=== PATIENT | male | born 1995 | race Caucasian/White ===

== ENCOUNTER 2024-05-29 08:58 | Observation (INO) | payer MEDICAID, OTHER ==
--- NOTE | 2024-05-29 09:05 | ERPHSYRPT ---
- History of Present Illness Time Seen by Provider: 05/29/24 09:04 Source: patient Exam Limitations: no limitations Physician History: This is a 29-year-old thin white male patient who has a history of Crohn's disease who arrives by private vehicle secondary to sudden onset of chest pain while watching TV at home. Patient was not exerting himself. Patient states his entire chest is achy. The pain is constant. It does not radiate. Patient is on Geodon and Effexor. Patient denies cough. Patient denies fever. Patient denies earaches. Patient has no abdominal pain. He denies nausea vomiting symptoms. He chronically has intermittent diarrhea symptoms. Patient states that he has had shaking chills. Timing/Duration: today Severity: mild (To moderate) Associated Symptoms: chest pain Allergies/Adverse Reactions: No Known Drug Allergies Allergy (Verified 05/29/24 09:04) Home Medications: Venlafaxine HCl [Venlafaxine HCl ER] 150 mg PO DAILY 05/29/24 [History] ziprasidone HCL [Ziprasidone HCl] 80 mg PO BID 05/29/24 [History] Hx Tetanus, Diphtheria Vaccination/Date Given: Yes Hx Influenza Vaccination/Date Given: Yes (2012) Hx Pneumococcal Vaccination/Date Given: No Travel Risk - International Travel Have you traveled outside of the country in past 3 weeks: No - Emerging Infectious Disease Are you exhibiting symptoms associated with any current EIDs: No - Review of Systems Constitutional: Chills Eyes: No Symptoms Ears, Nose, & Throat: No Symptoms Respiratory: No Symptoms Cardiac: Chest Pain Abdominal/Gastrointestinal: No Symptoms Genitourinary Symptoms: No Symptoms Musculoskeletal: No Symptoms Skin: No Symptoms Neurological: No Symptoms Psychological: No Symptoms Endocrine: No Symptoms Hematologic/Lymphatic: No Symptoms Immunological/Allergic: No Symptoms All Other Systems: Reviewed and Negative - Past Medical History Pertinent Past Medical History: Yes Neurological History: No Pertinent History ENT History: No Pertinent History Cardiac History: No Pertinent History Respiratory History: No Pertinent History Endocrine Medical History: No Pertinent History Musculoskeletal History: No Pertinent History GI Medical History: Crohns Disease History: No Pertinent History Psycho-Social History: No Pertinent History Male Reproductive Disorders: No Pertinent History - Past Surgical History Past Surgical History: Yes Neuro Surgical History: No Pertinent History Cardiac: No Pertinent History Respiratory: No Pertinent History Gastrointestinal: No Pertinent History Genitourinary: No Pertinent History Musculoskeletal: Other Male Surgical History: No Pertinent History Other Surgical History: bilateral fourth and fifth finger separation - Social History Smoking Status: Never smoker Exposure to second hand smoke: Yes Drug Use: none - Nursing Vital Signs Nursing Vital Signs: Initial Vital Signs Temperature 98.1 F 05/29/24 09:05 Pulse Rate 112 H 05/29/24 09:05 Blood Pressure 142/97 05/29/24 09:05 O2 Sat by Pulse Oximetry 100 05/29/24 09:05 Pain Scale Pain Intensity 4 - Physical Exam General Appearance: no apparent distress, alert, anxiety, thin Eye Exam: PERRL/EOMI, eyes nml inspection Ears, Nose, Throat Exam: normal ENT inspection, moist mucous membranes Neck Exam: normal inspection, non-tender, supple, full range of motion Respiratory Exam: normal breath sounds, chest tenderness, lungs clear, airway intact, No respiratory distress Cardiovascular Exam: tachycardia Gastrointestinal/Abdomen Exam: soft, normal bowel sounds, No tenderness Rectal Exam: not done Back Exam: normal inspection, normal range of motion, No CVA tenderness, No v ertebral tenderness Extremity Exam: normal inspection, normal range of motion, pelvis stable Neurologic Exam: alert, oriented x 3, cooperative, manager athletics II-XII nml as tested, nml cerebellar function, nml station & gait, sensation nml Skin Exam: normal color, warm, dry Lymphatic Exam: No adenopathy SpO2 Interpretation: normal O2 Delivery: Room Air - Course Nursing assessment & vital signs reviewed: Yes EKG Interpreted by Me: RATE (119), A-fib, NORMAL AXIS, NORMAL INTERVALS, NORMAL QRS, Other (No acute ischemic changes on today's twelve-lead EKG the QTc is 440. We repeated the twelve-lead EKG approximately 3 to 5 minutes after the first 1 and it is essentially the same findings.) Ordered Tests: Active Orders 24 hr Category Date Time Status Roll Panner STAT Care 05/29/24 09:14 Active EKG-ER Only STAT Care 05/29/24 09:14 Active IV Insertion STAT Care 05/29/24 09:14 Active Pulse Oximetry (ED) STAT Care 05/29/24 09:14 Active CHEST WITH CONTRAST [CT] Stat Exams 05/29/24 10:09 Completed BLOOD CULTURE Stat Lab 05/29/24 09:41 Received CBC W DIFF Stat Lab 05/29/24 09:36 Completed CMP Stat Lab 05/29/24 09:36 Completed D-DIMER QUANTITATIVE Stat Lab 05/29/24 09:36 Completed Lactic Acid Stat Lab 05/29/24 09:25 Completed MAG [MAGNESIUM] Stat Lab 05/29/24 09:36 Completed MONO SCREEN Stat Lab 05/29/24 09:36 Completed TROPONIN Q4H Lab 05/29/24 09:36 Completed TROPONIN Q4H Lab 05/29/24 13:15 Ordered TROPONIN Q4H Lab 05/29/24 17:15 Ordered UA W/RFX UR CULTURE Stat Lab 05/29/24 11:11 Completed Urine Triage Profile Stat Lab 05/29/24 11:13 Completed Medication Summary Generic Name Dose Route Start Last Admin Trade Name Freq PRN Reason Stop Dose Admin Sodium Chloride 1,000 mls @ 100 mls/hr 05/29/24 09:15 05/29/24 09:25 Sodium Chloride 0.9% 1000 Ml IV 06/28/24 09:14 100 mls/hr .Q10H ENE Administration Discontinued Medications Generic Name Dose Route Start Last Admin Trade Name Freq PRN Reason Stop Dose Admin Aspirin 324 mg 05/29/24 09:14 05/29/24 09:25 Aspirin 81 Mg Tab.Chew PO 05/29/24 09:15 324 mg STAT ONE Administration Aspirin Confirm 05/29/24 09:24 Aspirin 81 Mg Tab.Chew Administered 05/29/24 09:25 Dose 324 mg .ROUTE .STK-MED ONE Diltiazem HCl 15 mg 05/29/24 11:18 05/29/24 11:22 Diltiazem Hcl Iv 5 Mg/Ml Vial IV 05/29/24 11:19 15 mg STAT ONE Administration Diltiazem HCl Confirm 05/29/24 11:21 Diltiazem Hcl Iv 5 Mg/Ml Vial Administered 05/29/24 11:22 Dose 50 mg IV .STK-MED ONE Ondansetron HCl 4 mg 05/29/24 09:14 05/29/24 09:25 Ondansetron Hcl 4 Mg/2 Ml Vial IV 05/29/24 09:15 4 mg STAT ONE Administration Ondansetron HCl Confirm 05/29/24 09:24 Ondansetron Hcl 4 Mg/2 Ml Vial Administered 05/29/24 09:25 Dose 4 mg .ROUTE .STK-MED ONE Potassium Chloride 20 meq 05/29/24 10:09 05/29/24 10:12 Potassium Chloride Tab 10 Meq Tab PO 05/29/24 10:10 20 meq STAT ONE Administration Potassium Chloride Confirm 05/29/24 10:12 Potassium Chloride Tab 10 Meq Tab Administered 05/29/24 10:13 Dose 20 meq .ROUTE .STK-MED ONE Lab/Rad Data: Laboratory Result Diagrams 05/29/24 09:36 05/29/24 09:36 Laboratory Results 05/29/24 05/29/24 05/29/24 Range/Units 11:13 11:11 09:36 WBC (4.23-9.07) x10^3/uL RBC (4.63-6.08) x10^6/uL Hgb (13.7-17.5) g/dL Hct (40.1-51.0) % MCV (79.0-92.2) fL MCH (25.7-32.2) pg MCHC (32.3-36.5) g/dL RDW (11.6-14.4) % Plt Count (163-337) x10^3/uL MPV (9.4-12.4) fL Gran % (34.0-67.9) % Immature Gran % (Auto) (0.001-0.429) % Nucleat RBC Rel Count (0.00-0.2) % Eos # (Auto) (0.04-0.54) x10^3/uL Immature Gran # (Auto) (0.001-0.031) x10^3u/L Absolute Lymphs (auto) (1.32-3.57) x10^3/uL Absolute Monos (auto) (0.30-0.82) x10^3/uL Absolute Nucleated RBC (0.00-0.012) x10^3u/L Lymphocytes % (21.8-53.1) % Monocytes % (5.3-12.2) % Eosinophils % (0.8-7.0) % Basophils % (0.2-1.2) % Absolute Granulocytes (1.78-5.38) x10^3/uL Basophils # (0.01-0.08) x10^3/uL D-Dimer (0.0-0.50) mg/L Sodium (135-145) mmol/L Potassium (3.5-5.1) mmol/L Chloride (98-107) mmol/L Carbon Dioxide (22-30) mmol/L Anion Gap (5-15) MEQ/L BUN (9-20) mg/dL Creatinine (0.66-1.25) mg/dL Estimated GFR ML/MIN Glucose (74-106) mg/dL Lactic Acid (0.4-2.0) Calcium (8.4-10.2) mg/dL Magnesium (1.6-2.3) mg/dL Total Bilirubin (0.2-1.3) mg/dL AST (17-59) U/L ALT (0-50) U/L Alkaline Phosphatase (38-126) U/L Troponin I (0.000-0.033) ng/mL Serum Total Protein (6.3-8.2) g/dL Albumin (3.5-5.0) g/dL Urine Color Yellow (Yellow) Urine Appearance Clear (Clear) Urine pH 7.0 (4.6-8.0) Ur Specific [place] 1.020 (1.005-1.030) Urine Protein Negative (Negative) Urine Glucose (UA) Negative (Negative) mg/dL Urine Ketones Negative (Negative) Urine Blood Negative (Negative) Urine Nitrite Negative (Negative) Urine Bilirubin Negative (Negative) Urine Urobilinogen 0.2 (0.2) mg/dL Ur Leukocyte Esterase Negative (Negative) U Hyaline Cast (Auto) NONE SEEN (0-2) /LPF Urine Microscopic RBC 0-2 (0-5) /HPF Urine Microscopic WBC 0-2 (0-5) /HPF Ur Epithelial Cells None Seen (None Seen) /HPF Urine Bacteria None Seen (None Seen) /HPF Urine Culture Reflexed NO (NO) Urine Opiates Level NEGATIVE (NEGATIVE) Ur Methadone NEGATIVE (NEGATIVE) Urine Barbiturates NEGATIVE (NEGATIVE) Ur Phencyclidine (PCP) NEGATIVE (NEGATIVE) Urine Amphetamine NEGATIVE (NEGATIVE) U Benzodiazepine Level NEGATIVE (NEGATIVE) Urine Cocaine NEGATIVE (NEGATIVE) Urine Marijuana (THC) NEGATIVE (NEGATIVE) Monoscreen (NEGATIVE) Influenza Type A Ag NEGATIVE (NEGATIVE) Influenza Type B Ag NEGATIVE (NEGATIVE) RSV (PCR) NEGATIVE (NEGATIVE) SARS-CoV-2 (PCR) NEGATIVE (NEGATIVE) 05/29/24 05/29/24 05/29/24 Range/Units 09:36 09:36 09:36 WBC (4.23-9.07) x10^3/uL RBC (4.63-6.08) x10^6/uL Hgb (13.7-17.5) g/dL Hct (40.1-51.0) % MCV (79.0-92.2) fL MCH (25.7-32.2) pg MCHC (32.3-36.5) g/dL RDW (11.6-14.4) % Plt Count (163-337) x10^3/uL MPV (9.4-12.4) fL Gran % (34.0-67.9) % Immature Gran % (Auto) (0.001-0.429) % Nucleat RBC Rel Count (0.00-0.2) % Eos # (Auto) (0.04-0.54) x10^3/uL Immature Gran # (Auto) (0.001-0.031) x10^3u/L Absolute Lymphs (auto) (1.32-3.57) x10^3/uL Absolute Monos (auto) (0.30-0.82) x10^3/uL Absolute Nucleated RBC (0.00-0.012) x10^3u/L Lymphocytes % (21.8-53.1) % Monocytes % (5.3-12.2) % Eosinophils % (0.8-7.0) % Basophils % (0.2-1.2) % Absolute Granulocytes (1.78-5.38) x10^3/uL Basophils # (0.01-0.08) x10^3/uL D-Dimer 1.63 H* (0.0-0.50) mg/L Sodium (135-145) mmol/L Potassium (3.5-5.1) mmol/L Chloride (98-107) mmol/L Carbon Dioxide (22-30) mmol/L Anion Gap (5-15) MEQ/L BUN (9-20) mg/dL Creatinine (0.66-1.25) mg/dL Estimated GFR ML/MIN Glucose (74-106) mg/dL Lactic Acid (0.4-2.0) Calcium (8.4-10.2) mg/dL Magnesium 1.8 (1.6-2.3) mg/dL Total Bilirubin (0.2-1.3) mg/dL AST (17-59) U/L ALT (0-50) U/L Alkaline Phosphatase (38-126) U/L Troponin I < 0.012 (0.000-0.033) ng/mL Serum Total Protein (6.3-8.2) g/dL Albumin (3.5-5.0) g/dL Urine Color (Yellow) Urine Appearance (Clear) Urine pH (4.6-8.0) Ur Specific [place] (1.005-1.030) Urine Protein (Negative) Urine Glucose (UA) (Negative) mg/dL Urine Ketones (Negative) Urine Blood (Negative) Urine Nitrite (Negative) Urine Bilirubin (Negative) Urine Urobilinogen (0.2) mg/dL Ur Leukocyte Esterase (Negative) U Hyaline Cast (Auto) (0-2) /LPF Urine Microscopic RBC (0-5) /HPF Urine Microscopic WBC (0-5) /HPF Ur Epithelial Cells (None Seen) /HPF Urine Bacteria (None Seen) /HPF Urine Culture Reflexed (NO) Urine Opiates Level (NEGATIVE) Ur Methadone (NEGATIVE) Urine Barbiturates (NEGATIVE) Ur Phencyclidine (PCP) (NEGATIVE) Urine Amphetamine (NEGATIVE) U Benzodiazepine Level (NEGATIVE) Urine Cocaine (NEGATIVE) Urine Marijuana (THC) (NEGATIVE) Monoscreen NEGATIVE (NEGATIVE) Influenza Type A Ag (NEGATIVE) Influenza Type B Ag (NEGATIVE) RSV (PCR) (NEGATIVE) SARS-CoV-2 (PCR) (NEGATIVE) 05/29/24 05/29/24 05/29/24 Range/Units 09:36 09:36 09:25 WBC 7.3 (4.23-9.07) x10^3/uL RBC 4.88 (4.63-6.08) x10^6/uL Hgb 14.9 (13.7-17.5) g/dL Hct 41.9 (40.1-51.0) % MCV 85.9 (79.0-92.2) fL MCH 30.5 (25.7-32.2) pg MCHC 35.6 (32.3-36.5) g/dL RDW 12.4 (11.6-14.4) % Plt Count 306 (163-337) x10^3/uL MPV 10.4 (9.4-12.4) fL Gran % 55.3 (34.0-67.9) % Immature Gran % (Auto) 0.3 (0.001-0.429) % Nucleat RBC Rel Count 0.0 (0.00-0.2) % Eos # (Auto) 0.08 (0.04-0.54) x10^3/uL Immature Gran # (Auto) 0.02 (0.001-0.031) x10^3u/L Absolute Lymphs (auto) 2.48 (1.32-3.57) x10^3/uL Absolute Monos (auto) 0.66 (0.30-0.82) x10^3/uL Absolute Nucleated RBC 0.00 (0.00-0.012) x10^3u/L Lymphocytes % 33.8 (21.8-53.1) % Monocytes % 9.0 (5.3-12.2) % Eosinophils % 1.1 (0.8-7.0) % Basophils % 0.5 (0.2-1.2) % Absolute Granulocytes 4.06 (1.78-5.38) x10^3/uL Basophils # 0.04 (0.01-0.08) x10^3/uL D-Dimer (0.0-0.50) mg/L Sodium 140 (135-145) mmol/L Potassium 3.3 L (3.5-5.1) mmol/L Chloride 100 (98-107) mmol/L Carbon Dioxide 29 (22-30) mmol/L Anion Gap 14.0 (5-15) MEQ/L BUN 8 L (9-20) mg/dL Creatinine 0.75 (0.66-1.25) mg/dL Estimated GFR 126.9 ML/MIN Glucose 133 H (74-106) mg/dL Lactic Acid 1.2 (0.4-2.0) Calcium 9.2 (8.4-10.2) mg/dL Magnesium (1.6-2.3) mg/dL Total Bilirubin 0.50 (0.2-1.3) mg/dL AST 22 (17-59) U/L ALT 15 (0-50) U/L Alkaline Phosphatase 126 (38-126) U/L Troponin I (0.000-0.033) ng/mL Serum Total Protein 8.5 H (6.3-8.2) g/dL Albumin 4.6 (3.5-5.0) g/dL Urine Color (Yellow) Urine Appearance (Clear) Urine pH (4.6-8.0) Ur Specific [place] (1.005-1.030) Urine Protein (Negative) Urine Glucose (UA) (Negative) mg/dL Urine Ketones (Negative) Urine Blood (Negative) Urine Nitrite (Negative) Urine Bilirubin (Negative) Urine Urobilinogen (0.2) mg/dL Ur Leukocyte Esterase (Negative) U Hyaline Cast (Auto) (0-2) /LPF Urine Microscopic RBC (0-5) /HPF Urine Microscopic WBC (0-5) /HPF Ur Epithelial Cells (None Seen) /HPF Urine Bacteria (None Seen) /HPF Urine Culture Reflexed (NO) Urine Opiates Level (NEGATIVE) Ur Methadone (NEGATIVE) Urine Barbiturates (NEGATIVE) Ur Phencyclidine (PCP) (NEGATIVE) Urine Amphetamine (NEGATIVE) U Benzodiazepine Level (NEGATIVE) Urine Cocaine (NEGATIVE) Urine Marijuana (THC) (NEGATIVE) Monoscreen (NEGATIVE) Influenza Type A Ag (NEGATIVE) Influenza Type B Ag (NEGATIVE) RSV (PCR) (NEGATIVE) SARS-CoV-2 (PCR) (NEGATIVE) - Progress Progress: improved, re-examined Progress Note: 05/29/24 09:52 My medical decision making and the assignment of moderate complexity of this patient's medical issue today is based on review of the patient's past medical history, review the patient's medication list, review of patient drug allergy list, history present illness and physical findings on examination. The workup in this patient includes placement of an intravenous line, infusion of normal saline solution, twelve-lead EKG, D-dimer, troponin level, blood culture, urinalysis, urine drug triage, CBC, CMP, magnesium level, viral swabs, monotest. We will hold the chest x-ray order until we receive the results of the D-dimer determine if the patient will receive a plain chest x-ray film or a CT scan of the chest with contrast. Also, not convinced the patient actually has atrial fibrillation but more of shivering with a rapid heart rate. We will control his heart rate and recheck the twelve-lead EKG. 05/29/24 11:25 I interpreted the patient's laboratory data results. The patient did have a significantly elevated D-dimer at 1.63. Therefore, we ordered a CT scan of the chest with contrast to evaluate for pulmonary embolus or other acute intrathoracic/pulmonary abnormality. No other acute findings present on the laboratory data results The patient's heart rate dropped from the 119 to low 120s to 110 bpm. However, suddenly it increased to the 140s beats per minute. He maintained his systolic blood pressure in the 1 30-1 40 range. I repeated a twelve-lead EKG and interpreted it myself. It shows atrial fibrillation with a heart rate of 139 bpm and a QTc of 454. No other acute findings present. Therefore, we will provide him with 15 mg of intravenous Cardizem to help control this atrial fibrillation with RVR. I did discuss with him and his family member that the plan will be to wait for the results of the CT scan of the chest with contrast and likely place him in observation in the hospital. The patient's mother provided additional history that the patient forgot to provide us. That is, that he recently had a significant strep pharyngitis requiring admission into the hospital. After the patient received 15 mg of Cardizem, repeat twelve-lead EKG reveals a heart rate of 107 bpm and a QTc of 398. There is no other acute findings present. His systolic blood pressure is maintaining in the 130 to 140 mmHg 05/29/24 11:34 CT scan of the chest with contrast was interpreted by the radiologist and I reviewed the impression. The impression states incidental thoracic Schmorl node and old granulomatous disease. No pulmonary embolus. 05/29/24 12:[address] Davis, our telehospitalist on at this time. I reviewed the patient history, presenting symptoms and complaint, physical findings and workup results with him. Patient will be placed in observation. The telehospitalist stated to put him on a monitored bed on the floor and they will manage his care there. Counseled pt/family regarding: lab results, diagnosis, rad results Medical Desision Making - Independent Historian Additional History obtained from: Mother - Diagnostic Testing Diagnostic test were ordered, analyzed, and reviewed by me: Yes Radiological Interpretation: Reviewed by me, Teleradiologist Report - Risk of complications The pt has a high risk of morbidity or mortality based on: Decision regarding hospitilization or escalation of hosp level of care - Departure Departure Disposition: Observation Clinical Impression: Atrial fibrillation with RVR, Nonspecific chest pain, Hypokalemia Condition: Fair Critical Care Time: Yes Critical Care Time(excluding separately billable procedures): Critical 30-74 mins (50 minutes) Referrals: [facility] [NON-STAFF PHY W/O PRIVILEGES] - Follow up/PCP as directed
[2024-05-29] MEDS ORDERED: BABY ASPIRIN 81 MG CHEW ONE (09:24)
[2024-05-29] MEDS ORDERED: Zofran 4 MG/2 ML VIAL ONE (09:24)
[2024-05-29] MEDS: Sodium Chloride 0.9% 1000 ML 1,000 ML IV SCH ×2 (09:25→15:05)
[2024-05-29] MEDS: BABY ASPIRIN 81 MG CHEW PO ONE (09:25)
[2024-05-29] MEDS: Zofran 4 MG/2 ML VIAL IV ONE (09:25)
[2024-05-29 09:46] LABS: Absolute Neutrophil Ct (ANC) 4.06 x10^3/uL (1.78-5.38); BASOPHIL % 0.5 % (0.2-1.2); Basophil (Absolute #) 0.04 x10^3/uL (0.01-0.08); Eosinophil % 1.1 % (0.8-7.0); Eosinophil (Absolute #) 0.08 x10^3/uL (0.04-0.54); Hematocrit 41.9 % (40.1-51.0); Hemoglobin 14.9 g/dL (13.7-17.5); IMMATURE GRAN # 0.02 x10^3u/L (0.001-0.031); IMMATURE GRAN % 0.3 % (0.001-0.429); Lymphocyte (Absolute #) 2.48 x10^3/uL (1.32-3.57); Lymphocytes % 33.8 % (21.8-53.1); Mean Cell Volume 85.9 fL (79.0-92.2); Mean Corpuscular Hemoglobin 30.5 pg (25.7-32.2); Mean Corpuscular Hgb Concent. 35.6 g/dL (32.3-36.5); Mean Platelet Volume 10.4 fL (9.4-12.4); Monocyte (Absolute #) 0.66 x10^3/uL (0.30-0.82); Neutrophil % 55.3 % (34.0-67.9); Platelet Count 306 x10^3/uL (163-337); Red Blood Count 4.88 x10^6/uL (4.63-6.08); Red Cell Distribution Width 12.4 % (11.6-14.4); White Blood Count 7.3 x10^3/uL (4.23-9.07)
[2024-05-29 10:00] LABS: ALBUMIN 4.6 g/dL (3.5-5.0); BILIRUBIN,TOTAL 0.5 mg/dL (0.2-1.3); Calcium 9.2 mg/dL (8.4-10.2); Creatinine 1 0.75 mg/dL (0.66-1.25); EST GLOMERULAR FILTRATION RATE 126.9 ML/MIN; Potassium 3.3 mmol/L (3.5-5.1); Total Protein 8.5 g/dL (6.3-8.2)
[2024-05-29 10:12] LABS: MAGNESIUM 1.8 mg/dL (1.6-2.3); TROPONIN < 0.012 ng/mL (0.000-0.033)
[2024-05-29] MEDS ORDERED: Klor Con ONE (10:12)
[2024-05-29] MEDS: Klor Con PO ONE (10:12)
[2024-05-29 10:34] LABS: INFLUENZA A NEGATIVE (NEGATIVE); INFLUENZA B NEGATIVE (NEGATIVE); RESPIRATORY SYNCTIAL VIRUS NEGATIVE (NEGATIVE); SARS-CoV-2 Xpert Express NEGATIVE (NEGATIVE)
[2024-05-29] MEDS ORDERED: Cardizem IV 50 MG/10 ML IV ONE (11:21)
[2024-05-29] MEDS: Cardizem IV 50 MG/10 ML IV ONE ×2 (11:22→13:19)
--- NOTE | 2024-05-29 11:31 | XRAY ---
Indication: Chest pain. Elevated d-dimer. Multiple contiguous axial images obtained through the chest using 80 cc Isovue 370 contrast and PE protocol. Comparison: None Good opacification pulmonary arteries to include the lobar and segmental branches. No pulmonary embolus. Heart not enlarged. Aorta is normal in course and caliber. Tiny left hilar calcified nodes. No pathologic mediastinal/hilar lymphadenopathy. Lungs inflated and clear with incidental tiny left lower lobe calcified granuloma. Bony thorax intact with incidental small multilevel thoracic Schmorl nodes. Limited upper abdomen demonstrates splenic/hepatic calcified granulomas. Impression: Incidental thoracic Schmorl nodes and old granulomatous disease. Remaining CT chest pulmonary embolus exam is normal.
[2024-05-29 11:32] LABS: Appearance Clear (Clear); Bacteria None Seen /HPF (None Seen); Bilirubin Negative (Negative); Blood Negative (Negative); Epithelial Cells None Seen /HPF (None Seen); Glucose, Urine Negative (Negative); Hyaline Casts NONE SEEN /LPF (0-2); Ketones Negative (Negative); Leukocyte Esterase Negative (Negative); Nitrite Negative (Negative); Protein,Urine Dip Negative (Negative); RBC 0-2 /HPF (0-5); Urobilinogen 0.2 mg/dL (0.2); WBC 0-2 /HPF (0-5)
[2024-05-29 11:47] LABS: Amphetamine,Urine NEGATIVE (NEGATIVE); Barbiturate,Urine NEGATIVE (NEGATIVE); Benzodiazepine,Urine NEGATIVE (NEGATIVE); Cocaine,Urine NEGATIVE (NEGATIVE); Methadone,Urine NEGATIVE (NEGATIVE); Opiate,Urine NEGATIVE (NEGATIVE); PCP,Urine NEGATIVE (NEGATIVE); THC,Urine NEGATIVE (NEGATIVE)
[2024-05-29 11:51] LABS: ADD URINE CULTURE? NO (NO)
[2024-05-29] MEDS ORDERED: Zofran 4 MG/2 ML VIAL IV PRN (13:42)
[2024-05-29] MEDS ORDERED: TYLENOL 325 MG PO PRN (13:42)
--- NOTE | 2024-05-29 13:55 | PCM.HP ---
History of Present Illness - Chief Complaint Chief Complaint: Nonspecific chest pain AFIB RVR Date: 05/29/24 History of Present Illness: is a 29 year old male with a pmhx of bipolar, depression, and crohns disease presented to ED 05/29/24 with complaints of chest pain and rapid heart rate. Patient states that symptoms began this morning. He describes the pain as constant pressure-like/cramping across his entire chest with associated shortness of breath, dizziness, and nausea. He does report he had a mild headache as well. Patient states he was recently had strep throat and was treated with amoxicillin. He denies any similar episodes of CP. Upon arrival to ED, patient was tachycardic with HR up to 137. EKG showing AFIB NORMAL AXIS, NORMAL INTERVALS, NORMAL QRS, Other (No acute ischemic changes on today's twelve-lead EKG the QTc is 440. Repeat twelve-lead EKG approximately 3 to 5 minutes after the first 1 and it is essentially the same findings. Elevated DDimer. CTA showing Incidental thoracic Schmorl nodes and old granulomatous disease. Remaining CT chest pulmonary embolus exam is normal. Other remarkable lab findings is a potassium level of 3.3. Troponin x 2 is negative. Patient treated with 15 mg of intravenous Cardizem to help control this atrial fibrillation with RVR. After the patient received 15 mg of Cardizem, repeat twelve-lead EKG reveals a heart rate of 107 bpm and a QTc of 398. There is no other acute findings present. His systolic blood pressure is maintaining in the 130 to 140 mmHg. - Review of Systems Constitutional: No Symptoms Eyes: No Symptoms Ears, Nose, & Throat: No Symptoms Respiratory: Short Of Breath Cardiac: Chest Pain, Palpitations Abdominal/Gastrointestinal: Nausea Genitourinary Symptoms: No Symptoms Musculoskeletal: No Symptoms Skin: No Symptoms Neurological: Dizziness, Headache Psychological: Depression Endocrine: No Symptoms Hematologic/Lymphatic: No Symptoms Immunological/Allergic: No Symptoms Medications & Allergies Home Medications: Home Medication List Venlafaxine HCl [Venlafaxine HCl ER] 150 mg PO DAILY 05/29/24 [History Confirmed 05/29/24] ziprasidone HCL [Ziprasidone HCl] 80 mg PO BID 05/29/24 [History Confirmed 05/29/24] Allergies/Adverse Reactions: Allergies Allergy/AdvReac Type Severity Reaction Status Date / Time No Known Drug Allergies Allergy Verified 05/29/24 13:44 - Past Medical History Past Medical History: Yes Neurological History: No Pertinent History ENT History: No Pertinent History Cardiac History: No Pertinent History Respiratory History: No Pertinent History Endocrine Medical History: No Pertinent History Musculoskelatal History: No Pertinent History GI Medical History: Crohns Disease History: No Pertinent History Pyscho-Social History: Bipolar, Depression Male Reproductive Disorders: No Pertinent History - Past Surgical History Past Surgical History: Yes Neuro Surgical History: No Pertinent History Cardiac History: No Pertinent History Respiratory Surgery: No Pertinent History GI Surgical History: No Pertinent History Genitourinary Surgical Hx: No Pertinent History Musculskeletal Surgical Hx: Other Male Surgical History: No Pertinent History Other Surgical History: bilateral fourth and fifth finger separation - Social History Smoking Status: Never smoker Exposure to second hand smoke: Yes Alcohol: None Drug Use: none - Social Determinants of Health Will the patient participate in the screening: Yes Do you worry about a steady place to live?: No Do you have any problems with any of the following?: No known problems In the past 12 months,have you had to go without utilities?: No Have you or anyone in your house had to go without enough: No Transportation Issues: No Has anyone in your support network made you feel unsafe?: No - Physical Exam Vital Signs: Vital Signs - 24 hr Temp Pulse Resp BP BP Pulse Ox 05/29/24 13:30 115/72 05/29/24 13:15 99 H 17 132/83 94 L 05/29/24 13:00 126 H 22 135/86 96 05/29/24 12:45 137 H 18 102/78 96 05/29/24 12:40 124 H 19 105/79 92 L 05/29/24 12:35 124 H 14 108/81 93 L 05/29/24 12:30 115 H 13 114/83 94 L 05/29/24 12:25 110 H 18 107/67 93 L 05/29/24 12:20 117 H 17 114/81 93 L 05/29/24 12:15 116 H 17 117/78 93 L 05/29/24 12:10 106 H 16 116/78 94 L 05/29/24 12:05 94 H 21 110/78 93 L 05/29/24 12:00 114 H 17 110/84 93 L 05/29/24 11:55 110 H 19 122/70 94 L 05/29/24 11:50 108 H 21 117/84 95 05/29/24 11:45 87 16 118/86 93 L 05/29/24 11:40 129 H 18 115/78 95 05/29/24 11:35 131 H 25 H 122/96 96 05/29/24 11:30 99 H 18 119/74 95 05/29/24 11:25 103 H 18 107/83 95 05/29/24 11:15 103 H 23 134/90 97 05/29/24 11:00 120 H 22 110/77 97 05/29/24 10:45 119 H 18 126/91 97 05/29/24 10:42 103 H 19 127/91 99 05/29/24 10:15 116 H 12 113/96 99 05/29/24 10:00 126 H 19 113/89 05/29/24 09:45 116 H 18 135/89 99 05/29/24 09:32 112 H 19 134/106 05/29/24 09:14 99 05/29/24 09:05 98.1 F 112 H 142/97 100 General Appearance: no apparent distress Neurologic Exam: alert, oriented x 3, cooperative Eye Exam: PERRL/EOMI Ears, Nose, Throat Exam: normal ENT inspection Neck Exam: normal inspection Respiratory Exam: normal breath sounds, lungs clear Cardiovascular Exam: tachycardia, irregular Rectal Exam: deferred Back Exam: normal inspection Extremity Exam: normal inspection Skin Exam: pale Results - Labs Lab/Micro Results: Lab Results-Last 24 Hours 05/29/24 05/29/24 05/29/24 Range/Units 09:25 09:36 09:36 WBC 7.3 (4.23-9.07) x10^3/uL RBC 4.88 (4.63-6.08) x10^6/uL Hgb 14.9 (13.7-17.5) g/dL Hct 41.9 (40.1-51.0) % MCV 85.9 (79.0-92.2) fL MCH 30.5 (25.7-32.2) pg MCHC 35.6 (32.3-36.5) g/dL RDW 12.4 (11.6-14.4) % Plt Count 306 (163-337) x10^3/uL MPV 10.4 (9.4-12.4) fL Gran % 55.3 (34.0-67.9) % Immature Gran % (Auto) 0.3 (0.001-0.429) % Nucleat RBC Rel Count 0.0 (0.00-0.2) % Eos # (Auto) 0.08 (0.04-0.54) x10^3/uL Immature Gran # (Auto) 0.02 (0.001-0.031) x10^3u/L Absolute Lymphs (auto) 2.48 (1.32-3.57) x10^3/uL Absolute Monos (auto) 0.66 (0.30-0.82) x10^3/uL Absolute Nucleated RBC 0.00 (0.00-0.012) x10^3u/L Lymphocytes % 33.8 (21.8-53.1) % Monocytes % 9.0 (5.3-12.2) % Eosinophils % 1.1 (0.8-7.0) % Basophils % 0.5 (0.2-1.2) % Absolute Granulocytes 4.06 (1.78-5.38) x10^3/uL Basophils # 0.04 (0.01-0.08) x10^3/uL D-Dimer (0.0-0.50) mg/L Sodium 140 (135-145) mmol/L Potassium 3.3 L (3.5-5.1) mmol/L Chloride 100 (98-107) mmol/L Carbon Dioxide 29 (22-30) mmol/L Anion Gap 14.0 (5-15) MEQ/L BUN 8 L (9-20) mg/dL Creatinine 0.75 (0.66-1.25) mg/dL Estimated GFR 126.9 ML/MIN Glucose 133 H (74-106) mg/dL Lactic Acid 1.2 (0.4-2.0) Calcium 9.2 (8.4-10.2) mg/dL Magnesium (1.6-2.3) mg/dL Total Bilirubin 0.50 (0.2-1.3) mg/dL AST 22 (17-59) U/L ALT 15 (0-50) U/L Alkaline Phosphatase 126 (38-126) U/L Troponin I (0.000-0.033) ng/mL Serum Total Protein 8.5 H (6.3-8.2) g/dL Albumin 4.6 (3.5-5.0) g/dL Urine Color (Yellow) Urine Appearance (Clear) Urine pH (4.6-8.0) Ur Specific [place] (1.005-1.030) Urine Protein (Negative) Urine Glucose (UA) (Negative) mg/dL Urine Ketones (Negative) Urine Blood (Negative) Urine Nitrite (Negative) Urine Bilirubin (Negative) Urine Urobilinogen (0.2) mg/dL Ur Leukocyte Esterase (Negative) U Hyaline Cast (Auto) (0-2) /LPF Urine Microscopic RBC (0-5) /HPF Urine Microscopic WBC (0-5) /HPF Ur Epithelial Cells (None Seen) /HPF Urine Bacteria (None Seen) /HPF Urine Culture Reflexed (NO) Urine Opiates Level (NEGATIVE) Ur Methadone (NEGATIVE) Urine Barbiturates (NEGATIVE) Ur Phencyclidine (PCP) (NEGATIVE) Urine Amphetamine (NEGATIVE) U Benzodiazepine Level (NEGATIVE) Urine Cocaine (NEGATIVE) Urine Marijuana (THC) (NEGATIVE) Monoscreen (NEGATIVE) Influenza Type A Ag (NEGATIVE) Influenza Type B Ag (NEGATIVE) RSV (PCR) (NEGATIVE) SARS-CoV-2 (PCR) (NEGATIVE) 05/29/24 05/29/24 05/29/24 Range/Units 09:36 09:36 09:36 WBC (4.23-9.07) x10^3/uL RBC (4.63-6.08) x10^6/uL Hgb (13.7-17.5) g/dL Hct (40.1-51.0) % MCV (79.0-92.2) fL MCH (25.7-32.2) pg MCHC (32.3-36.5) g/dL RDW (11.6-14.4) % Plt Count (163-337) x10^3/uL MPV (9.4-12.4) fL Gran % (34.0-67.9) % Immature Gran % (Auto) (0.001-0.429) % Nucleat RBC Rel Count (0.00-0.2) % Eos # (Auto) (0.04-0.54) x10^3/uL Immature Gran # (Auto) (0.001-0.031) x10^3u/L Absolute Lymphs (auto) (1.32-3.57) x10^3/uL Absolute Monos (auto) (0.30-0.82) x10^3/uL Absolute Nucleated RBC (0.00-0.012) x10^3u/L Lymphocytes % (21.8-53.1) % Monocytes % (5.3-12.2) % Eosinophils % (0.8-7.0) % Basophils % (0.2-1.2) % Absolute Granulocytes (1.78-5.38) x10^3/uL Basophils # (0.01-0.08) x10^3/uL D-Dimer 1.63 H* (0.0-0.50) mg/L Sodium (135-145) mmol/L Potassium (3.5-5.1) mmol/L Chloride (98-107) mmol/L Carbon Dioxide (22-30) mmol/L Anion Gap (5-15) MEQ/L BUN (9-20) mg/dL Creatinine (0.66-1.25) mg/dL Estimated GFR ML/MIN Glucose (74-106) mg/dL Lactic Acid (0.4-2.0) Calcium (8.4-10.2) mg/dL Magnesium 1.8 (1.6-2.3) mg/dL Total Bilirubin (0.2-1.3) mg/dL AST (17-59) U/L ALT (0-50) U/L Alkaline Phosphatase (38-126) U/L Troponin I < 0.012 (0.000-0.033) ng/mL Serum Total Protein (6.3-8.2) g/dL Albumin (3.5-5.0) g/dL Urine Color (Yellow) Urine Appearance (Clear) Urine pH (4.6-8.0) Ur Specific [place] (1.005-1.030) Urine Protein (Negative) Urine Glucose (UA) (Negative) mg/dL Urine Ketones (Negative) Urine Blood (Negative) Urine Nitrite (Negative) Urine Bilirubin (Negative) Urine Urobilinogen (0.2) mg/dL Ur Leukocyte Esterase (Negative) U Hyaline Cast (Auto) (0-2) /LPF Urine Microscopic RBC (0-5) /HPF Urine Microscopic WBC (0-5) /HPF Ur Epithelial Cells (None Seen) /HPF Urine Bacteria (None Seen) /HPF Urine Culture Reflexed (NO) Urine Opiates Level (NEGATIVE) Ur Methadone (NEGATIVE) Urine Barbiturates (NEGATIVE) Ur Phencyclidine (PCP) (NEGATIVE) Urine Amphetamine (NEGATIVE) U Benzodiazepine Level (NEGATIVE) Urine Cocaine (NEGATIVE) Urine Marijuana (THC) (NEGATIVE) Monoscreen NEGATIVE (NEGATIVE) Influenza Type A Ag (NEGATIVE) Influenza Type B Ag (NEGATIVE) RSV (PCR) (NEGATIVE) SARS-CoV-2 (PCR) (NEGATIVE) 05/29/24 05/29/24 05/29/24 Range/Units 09:36 11:11 11:13 WBC (4.23-9.07) x10^3/uL RBC (4.63-6.08) x10^6/uL Hgb (13.7-17.5) g/dL Hct (40.1-51.0) % MCV (79.0-92.2) fL MCH (25.7-32.2) pg MCHC (32.3-36.5) g/dL RDW (11.6-14.4) % Plt Count (163-337) x10^3/uL MPV (9.4-12.4) fL Gran % (34.0-67.9) % Immature Gran % (Auto) (0.001-0.429) % Nucleat RBC Rel Count (0.00-0.2) % Eos # (Auto) (0.04-0.54) x10^3/uL Immature Gran # (Auto) (0.001-0.031) x10^3u/L Absolute Lymphs (auto) (1.32-3.57) x10^3/uL Absolute Monos (auto) (0.30-0.82) x10^3/uL Absolute Nucleated RBC (0.00-0.012) x10^3u/L Lymphocytes % (21.8-53.1) % Monocytes % (5.3-12.2) % Eosinophils % (0.8-7.0) % Basophils % (0.2-1.2) % Absolute Granulocytes (1.78-5.38) x10^3/uL Basophils # (0.01-0.08) x10^3/uL D-Dimer (0.0-0.50) mg/L Sodium (135-145) mmol/L Potassium (3.5-5.1) mmol/L Chloride (98-107) mmol/L Carbon Dioxide (22-30) mmol/L Anion Gap (5-15) MEQ/L BUN (9-20) mg/dL Creatinine (0.66-1.25) mg/dL Estimated GFR ML/MIN Glucose (74-106) mg/dL Lactic Acid (0.4-2.0) Calcium (8.4-10.2) mg/dL Magnesium (1.6-2.3) mg/dL Total Bilirubin (0.2-1.3) mg/dL AST (17-59) U/L ALT (0-50) U/L Alkaline Phosphatase (38-126) U/L Troponin I (0.000-0.033) ng/mL Serum Total Protein (6.3-8.2) g/dL Albumin (3.5-5.0) g/dL Urine Color Yellow (Yellow) Urine Appearance Clear (Clear) Urine pH 7.0 (4.6-8.0) Ur Specific [place] 1.020 (1.005-1.030) Urine Protein Negative (Negative) Urine Glucose (UA) Negative (Negative) mg/dL Urine Ketones Negative (Negative) Urine Blood Negative (Negative) Urine Nitrite Negative (Negative) Urine Bilirubin Negative (Negative) Urine Urobilinogen 0.2 (0.2) mg/dL Ur Leukocyte Esterase Negative (Negative) U Hyaline Cast (Auto) NONE SEEN (0-2) /LPF Urine Microscopic RBC 0-2 (0-5) /HPF Urine Microscopic WBC 0-2 (0-5) /HPF Ur Epithelial Cells None Seen (None Seen) /HPF Urine Bacteria None Seen (None Seen) /HPF Urine Culture Reflexed NO (NO) Urine Opiates Level NEGATIVE (NEGATIVE) Ur Methadone NEGATIVE (NEGATIVE) Urine Barbiturates NEGATIVE (NEGATIVE) Ur Phencyclidine (PCP) NEGATIVE (NEGATIVE) Urine Amphetamine NEGATIVE (NEGATIVE) U Benzodiazepine Level NEGATIVE (NEGATIVE) Urine Cocaine NEGATIVE (NEGATIVE) Urine Marijuana (THC) NEGATIVE (NEGATIVE) Monoscreen (NEGATIVE) Influenza Type A Ag NEGATIVE (NEGATIVE) Influenza Type B Ag NEGATIVE (NEGATIVE) RSV (PCR) NEGATIVE (NEGATIVE) SARS-CoV-2 (PCR) NEGATIVE (NEGATIVE) 05/29/24 Range/Units 13:00 WBC (4.23-9.07) x10^3/uL RBC (4.63-6.08) x10^6/uL Hgb (13.7-17.5) g/dL Hct (40.1-51.0) % MCV (79.0-92.2) fL MCH (25.7-32.2) pg MCHC (32.3-36.5) g/dL RDW (11.6-14.4) % Plt Count (163-337) x10^3/uL MPV (9.4-12.4) fL Gran % (34.0-67.9) % Immature Gran % (Auto) (0.001-0.429) % Nucleat RBC Rel Count (0.00-0.2) % Eos # (Auto) (0.04-0.54) x10^3/uL Immature Gran # (Auto) (0.001-0.031) x10^3u/L Absolute Lymphs (auto) (1.32-3.57) x10^3/uL Absolute Monos (auto) (0.30-0.82) x10^3/uL Absolute Nucleated RBC (0.00-0.012) x10^3u/L Lymphocytes % (21.8-53.1) % Monocytes % (5.3-12.2) % Eosinophils % (0.8-7.0) % Basophils % (0.2-1.2) % Absolute Granulocytes (1.78-5.38) x10^3/uL Basophils # (0.01-0.08) x10^3/uL D-Dimer (0.0-0.50) mg/L Sodium (135-145) mmol/L Potassium (3.5-5.1) mmol/L Chloride (98-107) mmol/L Carbon Dioxide (22-30) mmol/L Anion Gap (5-15) MEQ/L BUN (9-20) mg/dL Creatinine (0.66-1.25) mg/dL Estimated GFR ML/MIN Glucose (74-106) mg/dL Lactic Acid (0.4-2.0) Calcium (8.4-10.2) mg/dL Magnesium (1.6-2.3) mg/dL Total Bilirubin (0.2-1.3) mg/dL AST (17-59) U/L ALT (0-50) U/L Alkaline Phosphatase (38-126) U/L Troponin I < 0.012 (0.000-0.033) ng/mL Serum Total Protein (6.3-8.2) g/dL Albumin (3.5-5.0) g/dL Urine Color (Yellow) Urine Appearance (Clear) Urine pH (4.6-8.0) Ur Specific [place] (1.005-1.030) Urine Protein (Negative) Urine Glucose (UA) (Negative) mg/dL Urine Ketones (Negative) Urine Blood (Negative) Urine Nitrite (Negative) Urine Bilirubin (Negative) Urine Urobilinogen (0.2) mg/dL Ur Leukocyte Esterase (Negative) U Hyaline Cast (Auto) (0-2) /LPF Urine Microscopic RBC (0-5) /HPF Urine Microscopic WBC (0-5) /HPF Ur Epithelial Cells (None Seen) /HPF Urine Bacteria (None Seen) /HPF Urine Culture Reflexed (NO) Urine Opiates Level (NEGATIVE) Ur Methadone (NEGATIVE) Urine Barbiturates (NEGATIVE) Ur Phencyclidine (PCP) (NEGATIVE) Urine Amphetamine (NEGATIVE) U Benzodiazepine Level (NEGATIVE) Urine Cocaine (NEGATIVE) Urine Marijuana (THC) (NEGATIVE) Monoscreen (NEGATIVE) Influenza Type A Ag (NEGATIVE) Influenza Type B Ag (NEGATIVE) RSV (PCR) (NEGATIVE) SARS-CoV-2 (PCR) (NEGATIVE) - Radiology Impressions Radiology Exams & Impressions: Radiology Procedures Category Date Time Status CHEST WITH CONTRAST [CT] Stat Exams 05/29/24 10:09 Completed - Other Procedures and Tests Respiratory Therapy 05/29/24 13:42 EKG REPEAT IN AM Assessment/Plan (1) Atrial fibrillation with RVR Current Visit: Yes Status: Acute Assessment & Plan: -New onset -Trops x 2 WNL -EKG initial atrial fibrillation with a heart rate of 139 bpm and a QTc of 454/ repeat twelve-lead EKG reveals a heart rate of 107 bpm and a QTc of 398 -Given Diltiazem in ED x 2 - HR now controlled -Optimize electrolytes -Monitor BP closely - CMP/MG daily - check TSH -Echo -UDS negative -Metoprolol 25mg BID -cardiology consulted, appreciate recs -repeat EKG in the a.m. Code(s): I48.91 - UNSPECIFIED ATRIAL FIBRILLATION (2) Hypokalemia Current Visit: Yes Status: Acute Assessment & Plan: -given 20meq in ED, will recheck and replenish per protocol -tele Code(s): E87.6 - HYPOKALEMIA (3) Nonspecific chest pain Current Visit: Yes Status: Acute Assessment & Plan: -See AFIB RVR Code(s): R07.9 - CHEST PAIN, UNSPECIFIED (4) History of Crohn's disease Current Visit: Yes Status: Acute Assessment & Plan: -noted Code(s): Z87.19 - PERSONAL HISTORY OF OTHER DISEASES OF THE DIGESTIVE SYSTEM (5) Bipolar 1 disorder Current Visit: Yes Status: Acute Assessment & Plan: -cotninue home meds Code(s): F31.9 - BIPOLAR DISORDER, UNSPECIFIED (6) Depression Current Visit: Yes Status: Acute Assessment & Plan: -continue home meds Code(s): F32.A - DEPRESSION, UNSPECIFIED Telemedicine Encounter - Telemedicine Encounter Telemedicine Encounter: "The entirety of this encounter was performed via Telemedicine" This visit was performed using real-time audio and video connection between my location and thepatients locationwith the assistance of a surrogateat the patients location. Written or verbal consent was obtained from the patient/guardian to perform this visit [facility] technology. Any patient questions regarding the telemedicine interaction were answered.
[2024-05-29] MEDS: Lopressor 25MG Tab PO SCH (15:05)
--- NOTE | 2024-05-29 22:02 | PCM.CONS ---
History of Present Illness - Date of Consult Date of Encounter: 05/29/24 Consulting Labor Relations Teacher: SIOMARA LING MD Requesting Provider: Attending Provider: NATALIYA HANDLEY MD Primary Care Provider: PCP: ZO VILLEGAS - Consult Narrative Reason for Consult: Atrial fibrillation HPI: Patient is a 29M with a history of bipolar disorder, crohn disease who presented to the hospital with chest pain and palpitations that suddenly started yesterday. They were consistent and relentless. He had occasional dizziness as well. When he came to the ED he was found to have AF RVR with rates of 130-140. Was given IV cardizem 15 mg followed by 10 mg and started on metoprolol 25 mg. He then self-converted. Now feeling MUCH better. Denies chest pains whatsoever. TSH normal. Potassium and magnesium only slightly low at 3.6 and 1.8 respectively. He recently had strep throat and completed a course of antibiotics for that. denies fevers, chills, nausea, vomiting, diarrhea, syncope, presyncope, dysphagia,odynophagia, orthopnea, paroxysmal nocturnal dyspnea, shortness of breath, chest pain, refluxsymptoms, belly pain, dysuria, hematuria, melena, hematochezia, seizures, paralysis, or other neurological changes. All other systems have been reviewed and are negative. cc:: The requesting physician will be sent a copy of the consult. - Past Medical History Past Medical History: Yes Neurological History: No Pertinent History ENT History: No Pertinent History Cardiac History: No Pertinent History Respiratory History: No Pertinent History Endocrine Medical History: No Pertinent History Musculoskelatal History: No Pertinent History GI Medical History: Crohns Disease History: No Pertinent History Pyscho-Social History: Bipolar, Depression Male Reproductive Disorders: No Pertinent History - Past Surgical History Past Surgical History: Yes Neuro Surgical History: No Pertinent History Cardiac History: No Pertinent History Respiratory Surgery: No Pertinent History GI Surgical History: No Pertinent History Genitourinary Surgical Hx: No Pertinent History Musculskeletal Surgical Hx: Other Male Surgical History: No Pertinent History Other Surgical History: bilateral fourth and fifth finger separation - Social History Smoking Status: Never smoker Exposure to second hand smoke: Yes Alcohol: None Drug Use: none - Social Determinants of Health Will the patient participate in the screening: Yes Do you worry about a steady place to live?: No Do you have any problems with any of the following?: No known problems In the past 12 months,have you had to go without utilities?: No Have you or anyone in your house had to go without enough: No Transportation Issues: No Has anyone in your support network made you feel unsafe?: No Does the patient want assistance with any of the above?: No Medications & Allergies Home Medications: Home Medication List Venlafaxine HCl [Venlafaxine HCl ER] 150 mg PO DAILY 05/29/24 [History Confirmed 05/29/24] ziprasidone HCL [Ziprasidone HCl] 80 mg PO BID 05/29/24 [History Confirmed 05/29/24] Allergies/Adverse Reactions: Allergies Allergy/AdvReac Type Severity Reaction Status Date / Time No Known Drug Allergies Allergy Verified 05/29/24 13:44 Exam - Vitals Vital Signs: Vital Signs - 24 hr Temp Pulse Resp BP BP Pulse Ox 05/29/24 20:00 98.4 F 81 16 113/64 100 05/29/24 18:00 99.1 F 83 15 105/56 95 05/29/24 16:00 98.1 F 79 16 112/60 96 05/29/24 14:10 98.1 F 89 16 115/69 97 05/29/24 13:53 98.1 F 89 18 115/69 97 05/29/24 13:42 100 05/29/24 13:30 115/72 05/29/24 13:15 99 H 17 132/83 94 L 05/29/24 13:00 126 H 22 135/86 96 05/29/24 12:45 137 H 18 102/78 96 05/29/24 12:40 124 H 19 105/79 92 L 05/29/24 12:35 124 H 14 108/81 93 L 05/29/24 12:30 115 H 13 114/83 94 L 05/29/24 12:25 110 H 18 107/67 93 L 05/29/24 12:20 117 H 17 114/81 93 L 05/29/24 12:15 116 H 17 117/78 93 L 05/29/24 12:10 106 H 16 116/78 94 L 05/29/24 12:05 94 H 21 110/78 93 L 05/29/24 12:00 114 H 17 110/84 93 L 05/29/24 11:55 110 H 19 122/70 94 L 05/29/24 11:50 108 H 21 117/84 95 05/29/24 11:45 87 16 118/86 93 L 05/29/24 11:40 129 H 18 115/78 95 05/29/24 11:35 131 H 25 H 122/96 96 05/29/24 11:30 99 H 18 119/74 95 05/29/24 11:25 103 H 18 107/83 95 05/29/24 11:15 103 H 23 134/90 97 05/29/24 11:00 120 H 22 110/77 97 05/29/24 10:45 119 H 18 126/91 97 05/29/24 10:42 103 H 19 127/91 99 05/29/24 10:15 116 H 12 113/96 99 05/29/24 10:00 126 H 19 113/89 05/29/24 09:45 116 H 18 135/89 99 05/29/24 09:32 112 H 19 134/106 05/29/24 09:14 99 05/29/24 09:05 98.1 F 112 H 142/97 100 General:: alert and oriented x 4, no acute distress HEENT: PERRLA, EOMI Cardiovascular Exam: regular rate/rhythm, normal heart sounds Respiratory Exam: normal breath sounds, No chest tenderness SpO2: 100 Gastrointestinal/Abdomen Exam: soft, normal bowel sounds Extremity Exam: normal inspection Results Vital Signs: Vital Signs - 24 hr Temp Pulse Resp BP BP Pulse Ox 05/29/24 20:00 98.4 F 81 16 113/64 100 05/29/24 18:00 99.1 F 83 15 105/56 95 05/29/24 16:00 98.1 F 79 16 112/60 96 05/29/24 14:10 98.1 F 89 16 115/69 97 05/29/24 13:53 98.1 F 89 18 115/69 97 05/29/24 13:42 100 05/29/24 13:30 115/72 05/29/24 13:15 99 H 17 132/83 94 L 05/29/24 13:00 126 H 22 135/86 96 05/29/24 12:45 137 H 18 102/78 96 05/29/24 12:40 124 H 19 105/79 92 L 05/29/24 12:35 124 H 14 108/81 93 L 05/29/24 12:30 115 H 13 114/83 94 L 05/29/24 12:25 110 H 18 107/67 93 L 05/29/24 12:20 117 H 17 114/81 93 L 05/29/24 12:15 116 H 17 117/78 93 L 05/29/24 12:10 106 H 16 116/78 94 L 05/29/24 12:05 94 H 21 110/78 93 L 05/29/24 12:00 114 H 17 110/84 93 L 05/29/24 11:55 110 H 19 122/70 94 L 05/29/24 11:50 108 H 21 117/84 95 05/29/24 11:45 87 16 118/86 93 L 05/29/24 11:40 129 H 18 115/78 95 05/29/24 11:35 131 H 25 H 122/96 96 05/29/24 11:30 99 H 18 119/74 95 05/29/24 11:25 103 H 18 107/83 95 05/29/24 11:15 103 H 23 134/90 97 05/29/24 11:00 120 H 22 110/77 97 05/29/24 10:45 119 H 18 126/91 97 05/29/24 10:42 103 H 19 127/91 99 05/29/24 10:15 116 H 12 113/96 99 05/29/24 10:00 126 H 19 113/89 05/29/24 09:45 116 H 18 135/89 99 05/29/24 09:32 112 H 19 134/106 05/29/24 09:14 99 05/29/24 09:05 98.1 F 112 H 142/97 100 Pain Assessment - Last Documented Pain Intensity 0 Intake and Output: Intake & Output 05/27/24 05/28/24 05/29/24 05/30/24 11:59 11:59 11:59 11:59 Intake Total 540 Balance 540 Weight 54.431 kg 59.9 kg LAB: I have reviewed the Labs in [facility]. Radiology Exams: Radiology Procedures Category Date Time Status CHEST WITH CONTRAST [CT] Stat Exams 05/29/24 10:09 Completed ECHO W/2D AND DOPPLER [US] Stat Exams 05/29/24 14:11 Taken - ECHO Echo: image reviewed by me (Mildly reduced LVEF of 46%, globally. No effusion) Assessment & Plan (1) Atrial fibrillation with RVR Current Visit: Yes Status: Acute Assessment & Plan: Chads-VASC = 0 No need to start on anticoagulation Self converted No need to continue beta blockers at this time monitor on tele Tsh normal replete K>4, Mg>2 Repeat echo as outpatient--- likely stunned in the setting of afib. Currently global hypoK with LVEF of 46%. ideally would benefit from pill in pocket strategy for future afib but needs close outpatient cardiology as cardiomyopathy is a contraindication. Code(s): I48.91 - UNSPECIFIED ATRIAL FIBRILLATION (2) Nonspecific chest pain Current Visit: Yes Status: Acute Code(s): R07.9 - CHEST PAIN, UNSPECIFIED - Encounter Encounter: "The entirety of this encounter was performed via Telemedicine using audio and visual "
[2024-05-29] MEDS: Geodon 20 MG Capsule PO SCH (22:03)
[2024-05-29] MEDS: MAG-OX 400 PO ONE (22:04)
[2024-05-30 06:04] LABS: Absolute Neutrophil Ct (ANC) 3.98 x10^3/uL (1.78-5.38); BASOPHIL % 0.3 % (0.2-1.2); Basophil (Absolute #) 0.02 x10^3/uL (0.01-0.08); Eosinophil % 0.8 % (0.8-7.0); Eosinophil (Absolute #) 0.05 x10^3/uL (0.04-0.54); Hemoglobin 14.6 g/dL (13.7-17.5); IMMATURE GRAN # 0.01 x10^3u/L (0.001-0.031); IMMATURE GRAN % 0.2 % (0.001-0.429); Lymphocyte (Absolute #) 1.76 x10^3/uL (1.32-3.57); Lymphocytes % 27.4 % (21.8-53.1); Mean Cell Volume 88.2 fL (79.0-92.2); Mean Corpuscular Hemoglobin 30.7 pg (25.7-32.2); Mean Corpuscular Hgb Concent. 34.8 g/dL (32.3-36.5); Mean Platelet Volume 10.5 fL (9.4-12.4); Monocyte (Absolute #) 0.61 x10^3/uL (0.30-0.82); Monocytes % 9.5 % (5.3-12.2); Neutrophil % 61.8 % (34.0-67.9); Platelet Count 294 x10^3/uL (163-337); Red Blood Count 4.76 x10^6/uL (4.63-6.08); White Blood Count 6.4 x10^3/uL (4.23-9.07)
[2024-05-30 06:23] LABS: ALBUMIN 4.2 g/dL (3.5-5.0); ANION GAP 11.3 MEQ/L (5-15); BILIRUBIN,TOTAL 0.7 mg/dL (0.2-1.3); Calcium 9.2 mg/dL (8.4-10.2); Creatinine 1 0.85 mg/dL (0.66-1.25); EST GLOMERULAR FILTRATION RATE 122.1 ML/MIN; MAGNESIUM 2.1 mg/dL (1.6-2.3); Potassium 3.9 mmol/L (3.5-5.1); Total Protein 7.8 g/dL (6.3-8.2)
[2024-05-30 06:48] VITALS: BP 106/64; PULSE 77; RESP 15; TEMP 97; O2SAT 95
--- NOTE | 2024-05-30 09:41 | PCM.DS ---
Discharge Summary Date of Admission: 05/29/24 13:40 Date of Discharge: 05/30/24 Admitting Physician: NATALIYA HANDLEY MD Consults: Consults on Case 05/29/24 14:10 Cardiology Consult [Notify [employer] Window Installer of Admit] ROUTINE Primary Care Provider: ZO VILLEGAS Allergies Allergies No Known Drug Allergies Allergy (Verified 05/29/24 13:44) Hospital Summary - Hospital Course Hospital Course: is a 29 year old male with a pmhx of autism, bipolar, depression, and crohns disease presented to ED 05/29/24 with complaints of chest pain and rapid heart rate. Patient states that symptoms began this morning. He describes the pain as constant pressure-like/cramping across his entire chest with associated shortness of breath, dizziness, and nausea. He does report he had a mild headache as well. Patient states he was recently had strep throat and was treated with amoxicillin. He denies any similar episodes of CP. Upon arrival to ED, patient was tachycardic with HR up to 137. EKG showing AFIB NORMAL AXIS, NORMAL INTERVALS, NORMAL QRS, Other (No acute ischemic changes on today's twelve-lead EKG the QTc is 440. Repeat twelve-lead EKG approximately 3 to 5 minutes after the first 1 and it is essentially the same findings. Elevated DDimer. CTA showing Incidental thoracic Schmorl nodes and old granulomatous disease. Remaining CT chest pulmonary embolus exam is normal. Other remarkable lab findings is a potassium level of 3.3. Troponin x 2 is negative. Patient treated with 15 mg of intravenous Cardizem to help control this atrial fibrillation with RVR. After the patient received 15 mg of Cardizem, repeat twelve-lead EKG reveals a heart rate of 107 bpm and a QTc of 398. There is no other acute findings present. His systolic blood pressure is maintaining in the 130 to 140 mmHg. Cardiology consulted -echo with mildly reduced LVEF at 46% globally, no effusion with recs to repeat as OP l as likey stunned in the setting of AFIB. No need for anticoagulation with Chads-Vasc score of 0. No need for beta blockers.TSH normal - recs for follow up with cardiology as OP. No further CP or "heart racing" sensation. NS on Tele. Patient agreeable to plan. Will need to contact cardiology Abrahan and set up appt. Patient cleared for discharge by cardiology. Discharge Note New Diagnosis: AFIB RVR New Medications: none Follow Up: PCP/Cards Latest Assessment & Plan (1) Atrial fibrillation with RVR Current Visit: Yes Status: Acute Assessment & Plan: -New onset -Trops x 2 WNL -EKG initial atrial fibrillation with a heart rate of 139 bpm and a QTc of 454/ repeat twelve-lead EKG reveals a heart rate of 107 bpm and a QTc of 398 -Given Diltiazem in ED x 2 - HR now controlled -Optimize electrolytes -Monitor BP closely - CMP/MG daily - check TSH -Echo -UDS negative -Metoprolol 25mg BID -dcd by cards -cardiology consulted, -recs above -repeat EKG in the a.m. Code(s): I48.91 - UNSPECIFIED ATRIAL FIBRILLATION (2) Hypokalemia Current Visit: Yes Status: Acute Assessment & Plan: -given 20meq in ED, will recheck and replenish per protocol -tele Code(s): E87.6 - HYPOKALEMIA (3) Nonspecific chest pain Current Visit: Yes Status: Acute Assessment & Plan: -See AFIB RVR Code(s): R07.9 - CHEST PAIN, UNSPECIFIED (4) History of Crohn's disease Current Visit: Yes Status: Acute Assessment & Plan: -noted Code(s): Z87.19 - PERSONAL HISTORY OF OTHER DISEASES OF THE DIGESTIVE SYSTEM (5) Bipolar 1 disorder Current Visit: Yes Status: Acute Assessment & Plan: -cotninue home meds Code(s): F31.9 - BIPOLAR DISORDER, UNSPECIFIED (6) Depression Current Visit: Yes Status: Acute Assessment & Plan: -continue home meds Code(s): F32.A - DEPRESSION, UNSPECIFIED I spent 35 minutes [id number] with the patient on the day of discharge performing discharge exam, discussing hospital stay and discharge instructions with patient and caregivers, preparation of discharge records, prescriptions & referral forms and addressing any questions/concerns the patient had as documented above. - Vitals & Intake/Output Vital Signs: Vital Signs Temperature 97.0 F 05/30/24 06:47 Pulse Rate 77 05/30/24 06:47 Respiratory Rate 15 05/30/24 06:47 Blood Pressure 106/64 05/30/24 06:47 O2 Sat by Pulse Oximetry 95 05/30/24 06:47 Intake & Output: Intake & Output 05/27/24 05/28/24 05/29/24 05/30/24 11:59 11:59 11:59 11:59 Intake Total 540 Balance 540 Weight 54.431 kg 59.5 kg - Lab Result Diagrams: 05/30/24 05:35 05/30/24 05:35 Lab Results-Last 24 Hrs: Lab Results-Last 24 Hours 05/29/24 05/29/24 05/29/24 Range/Units 09:36 09:36 09:36 WBC 7.3 (4.23-9.07) x10^3/uL RBC 4.88 (4.63-6.08) x10^6/uL Hgb 14.9 (13.7-17.5) g/dL Hct 41.9 (40.1-51.0) % MCV 85.9 (79.0-92.2) fL MCH 30.5 (25.7-32.2) pg MCHC 35.6 (32.3-36.5) g/dL RDW 12.4 (11.6-14.4) % Plt Count 306 (163-337) x10^3/uL MPV 10.4 (9.4-12.4) fL Gran % 55.3 (34.0-67.9) % Immature Gran % (Auto) 0.3 (0.001-0.429) % Nucleat RBC Rel Count 0.0 (0.00-0.2) % Eos # (Auto) 0.08 (0.04-0.54) x10^3/uL Immature Gran # (Auto) 0.02 (0.001-0.031) x10^3u/L Absolute Lymphs (auto) 2.48 (1.32-3.57) x10^3/uL Absolute Monos (auto) 0.66 (0.30-0.82) x10^3/uL Absolute Nucleated RBC 0.00 (0.00-0.012) x10^3u/L Lymphocytes % 33.8 (21.8-53.1) % Monocytes % 9.0 (5.3-12.2) % Eosinophils % 1.1 (0.8-7.0) % Basophils % 0.5 (0.2-1.2) % Absolute Granulocytes 4.06 (1.78-5.38) x10^3/uL Basophils # 0.04 (0.01-0.08) x10^3/uL D-Dimer 1.63 H* (0.0-0.50) mg/L Sodium 140 (135-145) mmol/L Potassium 3.3 L (3.5-5.1) mmol/L Chloride 100 (98-107) mmol/L Carbon Dioxide 29 (22-30) mmol/L Anion Gap 14.0 (5-15) MEQ/L BUN 8 L (9-20) mg/dL Creatinine 0.75 (0.66-1.25) mg/dL Estimated GFR 126.9 ML/MIN Glucose 133 H (74-106) mg/dL Calcium 9.2 (8.4-10.2) mg/dL Magnesium (1.6-2.3) mg/dL Total Bilirubin 0.50 (0.2-1.3) mg/dL AST 22 (17-59) U/L ALT 15 (0-50) U/L Alkaline Phosphatase 126 (38-126) U/L Troponin I (0.000-0.033) ng/mL Serum Total Protein 8.5 H (6.3-8.2) g/dL Albumin 4.6 (3.5-5.0) g/dL Triglycerides (30-150) mg/dL Cholesterol (50-200) mg/dL LDL Cholesterol (30-100) mg/dL HDL Cholesterol (40-60) mg/dL Heart Disease Risk Ratio TSH 3rd Generation (0.470-4.680) mIU/L Urine Color (Yellow) Urine Appearance (Clear) Urine pH (4.6-8.0) Ur Specific [place] (1.005-1.030) Urine Protein (Negative) Urine Glucose (UA) (Negative) mg/dL Urine Ketones (Negative) Urine Blood (Negative) Urine Nitrite (Negative) Urine Bilirubin (Negative) Urine Urobilinogen (0.2) mg/dL Ur Leukocyte Esterase (Negative) U Hyaline Cast (Auto) (0-2) /LPF Urine Microscopic RBC (0-5) /HPF Urine Microscopic WBC (0-5) /HPF Ur Epithelial Cells (None Seen) /HPF Urine Bacteria (None Seen) /HPF Urine Culture Reflexed (NO) Urine Opiates Level (NEGATIVE) Ur Methadone (NEGATIVE) Urine Barbiturates (NEGATIVE) Ur Phencyclidine (PCP) (NEGATIVE) Urine Amphetamine (NEGATIVE) U Benzodiazepine Level (NEGATIVE) Urine Cocaine (NEGATIVE) Urine Marijuana (THC) (NEGATIVE) Monoscreen (NEGATIVE) Influenza Type A Ag (NEGATIVE) Influenza Type B Ag (NEGATIVE) RSV (PCR) (NEGATIVE) SARS-CoV-2 (PCR) (NEGATIVE) 05/29/24 05/29/24 05/29/24 Range/Units 09:36 09:36 09:36 WBC (4.23-9.07) x10^3/uL RBC (4.63-6.08) x10^6/uL Hgb (13.7-17.5) g/dL Hct (40.1-51.0) % MCV (79.0-92.2) fL MCH (25.7-32.2) pg MCHC (32.3-36.5) g/dL RDW (11.6-14.4) % Plt Count (163-337) x10^3/uL MPV (9.4-12.4) fL Gran % (34.0-67.9) % Immature Gran % (Auto) (0.001-0.429) % Nucleat RBC Rel Count (0.00-0.2) % Eos # (Auto) (0.04-0.54) x10^3/uL Immature Gran # (Auto) (0.001-0.031) x10^3u/L Absolute Lymphs (auto) (1.32-3.57) x10^3/uL Absolute Monos (auto) (0.30-0.82) x10^3/uL Absolute Nucleated RBC (0.00-0.012) x10^3u/L Lymphocytes % (21.8-53.1) % Monocytes % (5.3-12.2) % Eosinophils % (0.8-7.0) % Basophils % (0.2-1.2) % Absolute Granulocytes (1.78-5.38) x10^3/uL Basophils # (0.01-0.08) x10^3/uL D-Dimer (0.0-0.50) mg/L Sodium (135-145) mmol/L Potassium (3.5-5.1) mmol/L Chloride (98-107) mmol/L Carbon Dioxide (22-30) mmol/L Anion Gap (5-15) MEQ/L BUN (9-20) mg/dL Creatinine (0.66-1.25) mg/dL Estimated GFR ML/MIN Glucose (74-106) mg/dL Calcium (8.4-10.2) mg/dL Magnesium 1.8 (1.6-2.3) mg/dL Total Bilirubin (0.2-1.3) mg/dL AST (17-59) U/L ALT (0-50) U/L Alkaline Phosphatase (38-126) U/L Troponin I < 0.012 (0.000-0.033) ng/mL Serum Total Protein (6.3-8.2) g/dL Albumin (3.5-5.0) g/dL Triglycerides (30-150) mg/dL Cholesterol (50-200) mg/dL LDL Cholesterol (30-100) mg/dL HDL Cholesterol (40-60) mg/dL Heart Disease Risk Ratio TSH 3rd Generation (0.470-4.680) mIU/L Urine Color (Yellow) Urine Appearance (Clear) Urine pH (4.6-8.0) Ur Specific [place] (1.005-1.030) Urine Protein (Negative) Urine Glucose (UA) (Negative) mg/dL Urine Ketones (Negative) Urine Blood (Negative) Urine Nitrite (Negative) Urine Bilirubin (Negative) Urine Urobilinogen (0.2) mg/dL Ur Leukocyte Esterase (Negative) U Hyaline Cast (Auto) (0-2) /LPF Urine Microscopic RBC (0-5) /HPF Urine Microscopic WBC (0-5) /HPF Ur Epithelial Cells (None Seen) /HPF Urine Bacteria (None Seen) /HPF Urine Culture Reflexed (NO) Urine Opiates Level (NEGATIVE) Ur Methadone (NEGATIVE) Urine Barbiturates (NEGATIVE) Ur Phencyclidine (PCP) (NEGATIVE) Urine Amphetamine (NEGATIVE) U Benzodiazepine Level (NEGATIVE) Urine Cocaine (NEGATIVE) Urine Marijuana (THC) (NEGATIVE) Monoscreen NEGATIVE (NEGATIVE) Influenza Type A Ag NEGATIVE (NEGATIVE) Influenza Type B Ag NEGATIVE (NEGATIVE) RSV (PCR) NEGATIVE (NEGATIVE) SARS-CoV-2 (PCR) NEGATIVE (NEGATIVE) 05/29/24 05/29/24 05/29/24 Range/Units 11:11 11:13 13:00 WBC (4.23-9.07) x10^3/uL RBC (4.63-6.08) x10^6/uL Hgb (13.7-17.5) g/dL Hct (40.1-51.0) % MCV (79.0-92.2) fL MCH (25.7-32.2) pg MCHC (32.3-36.5) g/dL RDW (11.6-14.4) % Plt Count (163-337) x10^3/uL MPV (9.4-12.4) fL Gran % (34.0-67.9) % Immature Gran % (Auto) (0.001-0.429) % Nucleat RBC Rel Count (0.00-0.2) % Eos # (Auto) (0.04-0.54) x10^3/uL Immature Gran # (Auto) (0.001-0.031) x10^3u/L Absolute Lymphs (auto) (1.32-3.57) x10^3/uL Absolute Monos (auto) (0.30-0.82) x10^3/uL Absolute Nucleated RBC (0.00-0.012) x10^3u/L Lymphocytes % (21.8-53.1) % Monocytes % (5.3-12.2) % Eosinophils % (0.8-7.0) % Basophils % (0.2-1.2) % Absolute Granulocytes (1.78-5.38) x10^3/uL Basophils # (0.01-0.08) x10^3/uL D-Dimer (0.0-0.50) mg/L Sodium (135-145) mmol/L Potassium (3.5-5.1) mmol/L Chloride (98-107) mmol/L Carbon Dioxide (22-30) mmol/L Anion Gap (5-15) MEQ/L BUN (9-20) mg/dL Creatinine (0.66-1.25) mg/dL Estimated GFR ML/MIN Glucose (74-106) mg/dL Calcium (8.4-10.2) mg/dL Magnesium (1.6-2.3) mg/dL Total Bilirubin (0.2-1.3) mg/dL AST (17-59) U/L ALT (0-50) U/L Alkaline Phosphatase (38-126) U/L Troponin I < 0.012 (0.000-0.033) ng/mL Serum Total Protein (6.3-8.2) g/dL Albumin (3.5-5.0) g/dL Triglycerides (30-150) mg/dL Cholesterol (50-200) mg/dL LDL Cholesterol (30-100) mg/dL HDL Cholesterol (40-60) mg/dL Heart Disease Risk Ratio TSH 3rd Generation (0.470-4.680) mIU/L Urine Color Yellow (Yellow) Urine Appearance Clear (Clear) Urine pH 7.0 (4.6-8.0) Ur Specific [place] 1.020 (1.005-1.030) Urine Protein Negative (Negative) Urine Glucose (UA) Negative (Negative) mg/dL Urine Ketones Negative (Negative) Urine Blood Negative (Negative) Urine Nitrite Negative (Negative) Urine Bilirubin Negative (Negative) Urine Urobilinogen 0.2 (0.2) mg/dL Ur Leukocyte Esterase Negative (Negative) U Hyaline Cast (Auto) NONE SEEN (0-2) /LPF Urine Microscopic RBC 0-2 (0-5) /HPF Urine Microscopic WBC 0-2 (0-5) /HPF Ur Epithelial Cells None Seen (None Seen) /HPF Urine Bacteria None Seen (None Seen) /HPF Urine Culture Reflexed NO (NO) Urine Opiates Level NEGATIVE (NEGATIVE) Ur Methadone NEGATIVE (NEGATIVE) Urine Barbiturates NEGATIVE (NEGATIVE) Ur Phencyclidine (PCP) NEGATIVE (NEGATIVE) Urine Amphetamine NEGATIVE (NEGATIVE) U Benzodiazepine Level NEGATIVE (NEGATIVE) Urine Cocaine NEGATIVE (NEGATIVE) Urine Marijuana (THC) NEGATIVE (NEGATIVE) Monoscreen (NEGATIVE) Influenza Type A Ag (NEGATIVE) Influenza Type B Ag (NEGATIVE) RSV (PCR) (NEGATIVE) SARS-CoV-2 (PCR) (NEGATIVE) 05/29/24 05/29/24 05/30/24 Range/Units 14:11 17:20 05:35 WBC 6.4 (4.23-9.07) x10^3/uL RBC 4.76 (4.63-6.08) x10^6/uL Hgb 14.6 (13.7-17.5) g/dL Hct 42.0 (40.1-51.0) % MCV 88.2 (79.0-92.2) fL MCH 30.7 (25.7-32.2) pg MCHC 34.8 (32.3-36.5) g/dL RDW 13.0 (11.6-14.4) % Plt Count 294 (163-337) x10^3/uL MPV 10.5 (9.4-12.4) fL Gran % 61.8 (34.0-67.9) % Immature Gran % (Auto) 0.2 (0.001-0.429) % Nucleat RBC Rel Count 0.0 (0.00-0.2) % Eos # (Auto) 0.05 (0.04-0.54) x10^3/uL Immature Gran # (Auto) 0.01 (0.001-0.031) x10^3u/L Absolute Lymphs (auto) 1.76 (1.32-3.57) x10^3/uL Absolute Monos (auto) 0.61 (0.30-0.82) x10^3/uL Absolute Nucleated RBC 0.00 (0.00-0.012) x10^3u/L Lymphocytes % 27.4 (21.8-53.1) % Monocytes % 9.5 (5.3-12.2) % Eosinophils % 0.8 (0.8-7.0) % Basophils % 0.3 (0.2-1.2) % Absolute Granulocytes 3.98 (1.78-5.38) x10^3/uL Basophils # 0.02 (0.01-0.08) x10^3/uL D-Dimer (0.0-0.50) mg/L Sodium (135-145) mmol/L Potassium (3.5-5.1) mmol/L Chloride (98-107) mmol/L Carbon Dioxide (22-30) mmol/L Anion Gap (5-15) MEQ/L BUN (9-20) mg/dL Creatinine (0.66-1.25) mg/dL Estimated GFR ML/MIN Glucose (74-106) mg/dL Calcium (8.4-10.2) mg/dL Magnesium (1.6-2.3) mg/dL Total Bilirubin (0.2-1.3) mg/dL AST (17-59) U/L ALT (0-50) U/L Alkaline Phosphatase (38-126) U/L Troponin I 0.015 (0.000-0.033) ng/mL Serum Total Protein (6.3-8.2) g/dL Albumin (3.5-5.0) g/dL Triglycerides (30-150) mg/dL Cholesterol (50-200) mg/dL LDL Cholesterol (30-100) mg/dL HDL Cholesterol (40-60) mg/dL Heart Disease Risk Ratio TSH 3rd Generation 2.040 (0.470-4.680) mIU/L Urine Color (Yellow) Urine Appearance (Clear) Urine pH (4.6-8.0) Ur Specific [place] (1.005-1.030) Urine Protein (Negative) Urine Glucose (UA) (Negative) mg/dL Urine Ketones (Negative) Urine Blood (Negative) Urine Nitrite (Negative) Urine Bilirubin (Negative) Urine Urobilinogen (0.2) mg/dL Ur Leukocyte Esterase (Negative) U Hyaline Cast (Auto) (0-2) /LPF Urine Microscopic RBC (0-5) /HPF Urine Microscopic WBC (0-5) /HPF Ur Epithelial Cells (None Seen) /HPF Urine Bacteria (None Seen) /HPF Urine Culture Reflexed (NO) Urine Opiates Level (NEGATIVE) Ur Methadone (NEGATIVE) Urine Barbiturates (NEGATIVE) Ur Phencyclidine (PCP) (NEGATIVE) Urine Amphetamine (NEGATIVE) U Benzodiazepine Level (NEGATIVE) Urine Cocaine (NEGATIVE) Urine Marijuana (THC) (NEGATIVE) Monoscreen (NEGATIVE) Influenza Type A Ag (NEGATIVE) Influenza Type B Ag (NEGATIVE) RSV (PCR) (NEGATIVE) SARS-CoV-2 (PCR) (NEGATIVE) 05/30/24 Range/Units 05:35 WBC (4.23-9.07) x10^3/uL RBC (4.63-6.08) x10^6/uL Hgb (13.7-17.5) g/dL Hct (40.1-51.0) % MCV (79.0-92.2) fL MCH (25.7-32.2) pg MCHC (32.3-36.5) g/dL RDW (11.6-14.4) % Plt Count (163-337) x10^3/uL MPV (9.4-12.4) fL Gran % (34.0-67.9) % Immature Gran % (Auto) (0.001-0.429) % Nucleat RBC Rel Count (0.00-0.2) % Eos # (Auto) (0.04-0.54) x10^3/uL Immature Gran # (Auto) (0.001-0.031) x10^3u/L Absolute Lymphs (auto) (1.32-3.57) x10^3/uL Absolute Monos (auto) (0.30-0.82) x10^3/uL Absolute Nucleated RBC (0.00-0.012) x10^3u/L Lymphocytes % (21.8-53.1) % Monocytes % (5.3-12.2) % Eosinophils % (0.8-7.0) % Basophils % (0.2-1.2) % Absolute Granulocytes (1.78-5.38) x10^3/uL Basophils # (0.01-0.08) x10^3/uL D-Dimer (0.0-0.50) mg/L Sodium 140 (135-145) mmol/L Potassium 3.9 (3.5-5.1) mmol/L Chloride 102 (98-107) mmol/L Carbon Dioxide 31 H (22-30) mmol/L Anion Gap 11.3 (5-15) MEQ/L BUN 6 L (9-20) mg/dL Creatinine 0.85 (0.66-1.25) mg/dL Estimated GFR 122.1 ML/MIN Glucose 102 (74-106) mg/dL Calcium 9.2 (8.4-10.2) mg/dL Magnesium 2.1 (1.6-2.3) mg/dL Total Bilirubin 0.70 (0.2-1.3) mg/dL AST 19 (17-59) U/L ALT 13 (0-50) U/L Alkaline Phosphatase 103 (38-126) U/L Troponin I (0.000-0.033) ng/mL Serum Total Protein 7.8 (6.3-8.2) g/dL Albumin 4.2 (3.5-5.0) g/dL Triglycerides 84 (30-150) mg/dL Cholesterol 130 (50-200) mg/dL LDL Cholesterol 77 (30-100) mg/dL HDL Cholesterol 32 L (40-60) mg/dL Heart Disease Risk Ratio 4.0 TSH 3rd Generation (0.470-4.680) mIU/L Urine Color (Yellow) Urine Appearance (Clear) Urine pH (4.6-8.0) Ur Specific [place] (1.005-1.030) Urine Protein (Negative) Urine Glucose (UA) (Negative) mg/dL Urine Ketones (Negative) Urine Blood (Negative) Urine Nitrite (Negative) Urine Bilirubin (Negative) Urine Urobilinogen (0.2) mg/dL Ur Leukocyte Esterase (Negative) U Hyaline Cast (Auto) (0-2) /LPF Urine Microscopic RBC (0-5) /HPF Urine Microscopic WBC (0-5) /HPF Ur Epithelial Cells (None Seen) /HPF Urine Bacteria (None Seen) /HPF Urine Culture Reflexed (NO) Urine Opiates Level (NEGATIVE) Ur Methadone (NEGATIVE) Urine Barbiturates (NEGATIVE) Ur Phencyclidine (PCP) (NEGATIVE) Urine Amphetamine (NEGATIVE) U Benzodiazepine Level (NEGATIVE) Urine Cocaine (NEGATIVE) Urine Marijuana (THC) (NEGATIVE) Monoscreen (NEGATIVE) Influenza Type A Ag (NEGATIVE) Influenza Type B Ag (NEGATIVE) RSV (PCR) (NEGATIVE) SARS-CoV-2 (PCR) (NEGATIVE) - Radiology Exams Ordered Rad Exams-Entire Visit: Radiology Procedures Category Date Time Status CHEST WITH CONTRAST [CT] Stat Exams 05/29/24 10:09 Completed ECHO W/2D AND DOPPLER [US] Stat Exams 05/29/24 14:11 Taken - Procedures and Test Procedures and Tests throughout Hospitalization: Therapy Orders & Screens 05/29/24 13:42 EKG REPEAT IN AM Comment: Discharge Exam General Appearance: no apparent distress Neurologic Exam: alert, oriented x 3, cooperative Eye Exam: PERRL Ears, Nose, Throat Exam: normal ENT inspection Neck Exam: normal inspection Respiratory Exam: normal breath sounds, lungs clear Cardiovascular Exam: regular rate/rhythm, normal heart sounds Gastrointestinal/Abdomen Exam: soft, normal bowel sounds Male Genitalia Exam: deferred Rectal Exam: deferred Back Exam: normal inspection Extremity Exam: normal inspection Skin Exam: normal color Final Diagnosis/Problem List - Final Discharge Diagnosis/Problem (1) Atrial fibrillation with RVR Current Visit: Yes Status: Resolved Code(s): I48.91 - UNSPECIFIED ATRIAL FIBRILLATION (2) Hypokalemia Current Visit: Yes Status: Resolved Code(s): E87.6 - HYPOKALEMIA (3) Nonspecific chest pain Current Visit: Yes Status: Resolved Code(s): R07.9 - CHEST PAIN, UNSPECIFIED (4) History of Crohn's disease Current Visit: Yes Status: Chronic Code(s): Z87.19 - PERSONAL HISTORY OF OTHER DISEASES OF THE DIGESTIVE SYSTEM (5) Bipolar 1 disorder Current Visit: Yes Status: Chronic Code(s): F31.9 - BIPOLAR DISORDER, UNSPECIFIED (6) Depression Current Visit: Yes Status: Chronic Code(s): F32.A - DEPRESSION, UNSPECIFIED (7) Autism Current Visit: Yes Status: Chronic Code(s): F84.0 - AUTISTIC DISORDER - Discharge Disposition: Home, Self-Care Condition: Stable Prescriptions: Continue ziprasidone HCL [Ziprasidone HCl] 80 mg PO BID Venlafaxine HCl [Venlafaxine HCl ER] 150 mg PO DAILY Follow up with: ZO VILLEGAS [Primary Care Provider] -
[2024-05-30] MEDS: Effexor XR 75 MG PO SCH (10:21)
== END 2024-05-30 10:58 | disposition home or self-care (01) ==
LOC: ED 08:58 → MED SURG 13:40
PROVIDERS: ADMIT Internal Medicine; ATTEND Internal Medicine
DX: I48.20 Chronic atrial fibrillation, unspecified (principal); E87.6 Hypokalemia; R07.9 Chest pain, unspecified; Z87.19 Personal history of other diseases of the digestive system; K50.90 Crohn's disease, unspecified, without complications; R51.9 Headache, unspecified; R00.0 Tachycardia, unspecified; F32.A Depression, unspecified; F84.0 Autistic disorder; Z79.899 Other long term (current) drug therapy
CPT/HCPCS: 0241U; 36000; 36415; 71260; 80053; 80061; 80307; 81001; 83605; 83721; 83735; 84443; 84484; 85025; 85379; 86308; 87040; 93005; 93041; 93268; 93306; 94760; 96374; 96375; 96376; 99285; 99291; G0378; Q3014; J2405; A9270-GY

== ENCOUNTER 2024-06-21 02:31 | Emergency (ER) | payer OTHER ==
[2024-06-21 02:46] VITALS: TEMP 99.1
--- NOTE | 2024-06-21 03:04 | ERPHSYRPT ---
- History of Present Illness Time Seen by Provider: 06/21/24 02:50 Source: patient Patient Subjective Stated Complaint: c/o of dizziness Triage Nursing Assessment: Pt brought to ED by pt's mother's boyfriend with the c/o of dizziness. Pt states he feels like he is having a seizure. Patient's gait is steady, tachycardic, skin w/n/d, complains of nausea and headache, pulses normal, pt doesn't appear to be in any distress at this time. Physician History: For the past 40 minutes pt has had dizziness(off balance), shortness of air, nausea, headache, diaphoresis and a feeling like he is going to have a seizure. Pt denies previous seizure but looked it up on the internet and feels like he is going to have one. Allergies/Adverse Reactions: No Known Drug Allergies Allergy (Verified 06/21/24 02:43) Home Medications: Venlafaxine HCl [Venlafaxine HCl ER] 150 mg PO HS 05/29/24 [History] ziprasidone HCL [Ziprasidone HCl] 80 mg PO HS 05/29/24 [History] Hx Tetanus, Diphtheria Vaccination/Date Given: No Hx Influenza Vaccination/Date Given: Yes Hx Pneumococcal Vaccination/Date Given: No Travel Risk - International Travel Have you traveled outside of the country in past 3 weeks: No - Emerging Infectious Disease Are you exhibiting symptoms associated with any current EIDs: No - Review of Systems Constitutional: No Fever Ears, Nose, & Throat: No Ear Pain Respiratory: Dyspnea Abdominal/Gastrointestinal: Nausea, No Abdominal Pain, No Vomiting, No Diarrhea Genitourinary Symptoms: No Dysuria Skin: No Rash Neurological: Dizziness, Headache - Past Medical History Pertinent Past Medical History: Yes Neurological History: No Pertinent History ENT History: No Pertinent History Cardiac History: No Pertinent History Respiratory History: No Pertinent History Endocrine Medical History: No Pertinent History Musculoskeletal History: No Pertinent History GI Medical History: Crohns Disease History: No Pertinent History Psycho-Social History: Bipolar, Depression Male Reproductive Disorders: No Pertinent History - Past Surgical History Past Surgical History: Yes Neuro Surgical History: No Pertinent History Cardiac: No Pertinent History Respiratory: No Pertinent History Gastrointestinal: No Pertinent History Genitourinary: No Pertinent History Musculoskeletal: Other Male Surgical History: No Pertinent History Other Surgical History: bilateral fourth and fifth finger separation - Social History Smoking Status: Never smoker Exposure to second hand smoke: No Drug Use: none, marijuana - Social Determinants of Health Will the patient participate in the screening: Yes Do you worry about a steady place to live?: No Do you have any problems with any of the following?: No known problems In the past 12 months,have you had to go without utilities?: No Transportation Issues: No Has anyone in your support network made you feel unsafe?: No Have you or anyone in your house had to go without enough: No - Nursing Vital Signs Nursing Vital Signs: Initial Vital Signs Temperature 99.1 F 06/21/24 02:33 Pulse Rate 112 H 06/21/24 02:33 Blood Pressure 139/97 06/21/24 02:33 O2 Sat by Pulse Oximetry 100 06/21/24 02:33 Pain Scale Pain Intensity 0 - Physical Exam General Appearance: alert Eye Exam: PERRL/EOMI Ears, Nose, Throat Exam: pharyngeal erythema, other (cerumen occlusion of left ear) Neck Exam: normal inspection Respiratory Exam: lungs clear Cardiovascular Exam: normal heart sounds Gastrointestinal/Abdomen Exam: normal bowel sounds Back Exam: normal inspection Extremity Exam: other (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)) Neurologic Exam: alert, cooperative, sensation nml, No motor deficits Skin Exam: warm, dry SpO2 Interpretation: normal SpO2: 100 O2 Delivery: Room Air - Course Nursing assessment & vital signs reviewed: Yes EKG Interpreted by Me: RATE (105), Sinus Tach, NORMAL AXIS, Other (QTc = 426) - Radiology Exams Chest X-ray Interpretation: Interpreted by me, No Pneumonia - CT Exams Head CT Interpretation: Tele-radiologist Report (Prominent infra-cerebellar CSF space is seen indenting the inferior srface of the cerebellum and communicating with the 4th ventricle associated with mild dilatation of the supra and to less extent infratentorial ventricular system; 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 ) Ordered Tests: Active Orders 24 hr Category Date Time Status EKG-ER Only STAT Care 06/21/24 03:02 Active IV Insertion STAT Care 06/21/24 03:04 Active CHEST 2 VIEWS (PA AND LAT) Stat Exams 06/21/24 03:01 Taken HEAD WITHOUT CONTRAST [CT] Stat Exams 06/21/24 02:59 Completed AMYLASE Stat Lab 06/21/24 03:20 Completed CBC W DIFF Stat Lab 06/21/24 03:20 Completed CMP Stat Lab 06/21/24 03:20 Completed D-DIMER QUANTITATIVE Stat Lab 06/21/24 03:20 Completed ETHYL ALCOHOL Stat Lab 06/21/24 03:38 Completed LIPASE Stat Lab 06/21/24 03:20 Completed MAGNESIUM Stat Lab 06/21/24 03:20 Completed MONO SCREEN Stat Lab 06/21/24 03:20 Completed TROPONIN Q4H Lab 06/21/24 03:20 Completed TROPONIN Q4H Lab 06/21/24 07:15 Ordered TROPONIN Q4H Lab 06/21/24 11:15 Ordered UA W/RFX UR CULTURE Stat Lab 06/21/24 03:37 Completed Urine Triage Profile Stat Lab 06/21/24 03:37 Completed Medication Summary Discontinued Medications Generic Name Dose Route Start Last Admin Trade Name Freq PRN Reason Stop Dose Admin Sodium Chloride 1,000 mls @ 999 mls/hr 06/21/24 03:04 06/21/24 03:16 Sodium Chloride 0.9% 1000 Ml IV 06/21/24 04:04 999 mls/hr .Q1H1M STA Administration Sodium Chloride Confirm 06/21/24 03:06 Sodium Chloride 0.9% 1000 Ml Administered 06/21/24 03:07 Dose 1,000 mls @ ud .ROUTE .STK-MED ONE Lab/Rad Data: Laboratory Result Diagrams 06/21/24 03:20 06/21/24 03:20 Laboratory Results 06/21/24 06/21/24 06/21/24 Range/Units 03:38 03:37 03:37 WBC (4.23-9.07) x10^3/uL RBC (4.63-6.08) x10^6/uL Hgb (13.7-17.5) g/dL Hct (40.1-51.0) % MCV (79.0-92.2) fL MCH (25.7-32.2) pg MCHC (32.3-36.5) g/dL RDW (11.6-14.4) % Plt Count (163-337) x10^3/uL MPV (9.4-12.4) fL Gran % (34.0-67.9) % Immature Gran % (Auto) (0.001-0.429) % Nucleat RBC Rel Count (0.00-0.2) % Eos # (Auto) (0.04-0.54) x10^3/uL Immature Gran # (Auto) (0.001-0.031) x10^3u/L Absolute Lymphs (auto) (1.32-3.57) x10^3/uL Absolute Monos (auto) (0.30-0.82) x10^3/uL Absolute Nucleated RBC (0.00-0.012) x10^3u/L Lymphocytes % (21.8-53.1) % Monocytes % (5.3-12.2) % Eosinophils % (0.8-7.0) % Basophils % (0.2-1.2) % Absolute Granulocytes (1.78-5.38) x10^3/uL Basophils # (0.01-0.08) x10^3/uL D-Dimer (0.0-0.50) mg/L Sodium (135-145) mmol/L Potassium (3.5-5.1) mmol/L Chloride (98-107) mmol/L Carbon Dioxide (22-30) mmol/L Anion Gap (5-15) MEQ/L BUN (9-20) mg/dL Creatinine (0.66-1.25) mg/dL Estimated GFR ML/MIN Glucose (74-106) mg/dL Calcium (8.4-10.2) mg/dL Magnesium (1.6-2.3) mg/dL Total Bilirubin (0.2-1.3) mg/dL AST (17-59) U/L ALT (0-50) U/L Alkaline Phosphatase (38-126) U/L Troponin I (0.000-0.033) ng/mL Serum Total Protein (6.3-8.2) g/dL Albumin (3.5-5.0) g/dL Amylase (30-110) U/L Lipase (23-300) U/L Urine Color Yellow (Yellow) Urine Appearance Clear (Clear) Urine pH 7.0 (4.6-8.0) Ur Specific [place] 1.010 (1.005-1.030) Urine Protein Negative (Negative) Urine Glucose (UA) Negative (Negative) mg/dL Urine Ketones Negative (Negative) Urine Blood Negative (Negative) Urine Nitrite Negative (Negative) Urine Bilirubin Negative (Negative) Urine Urobilinogen 0.2 (0.2) mg/dL Ur Leukocyte Esterase Negative (Negative) U Hyaline Cast (Auto) NONE SEEN (0-2) /LPF Urine Microscopic RBC 0-2 (0-5) /HPF Urine Microscopic WBC 0-2 (0-5) /HPF Ur Epithelial Cells None Seen (None Seen) /HPF Urine Bacteria None Seen (None Seen) /HPF Urine Culture Reflexed NO (NO) Urine Opiates Level NEGATIVE (NEGATIVE) Ur Methadone NEGATIVE (NEGATIVE) Urine Barbiturates NEGATIVE (NEGATIVE) Ur Phencyclidine (PCP) NEGATIVE (NEGATIVE) Urine Amphetamine NEGATIVE (NEGATIVE) U Benzodiazepine Level NEGATIVE (NEGATIVE) Urine Cocaine NEGATIVE (NEGATIVE) Urine Marijuana (THC) POSITIVE A (NEGATIVE) Ethyl Alcohol < 10 (0-10) mg/dL Monoscreen (NEGATIVE) Influenza Type A Ag (NEGATIVE) Influenza Type B Ag (NEGATIVE) RSV (PCR) (NEGATIVE) SARS-CoV-2 (PCR) (NEGATIVE) Group A Strep Antibody (NEGATIVE) 06/21/24 06/21/24 06/21/24 Range/Units 03:22 03:22 03:20 WBC (4.23-9.07) x10^3/uL RBC (4.63-6.08) x10^6/uL Hgb (13.7-17.5) g/dL Hct (40.1-51.0) % MCV (79.0-92.2) fL MCH (25.7-32.2) pg MCHC (32.3-36.5) g/dL RDW (11.6-14.4) % Plt Count (163-337) x10^3/uL MPV (9.4-12.4) fL Gran % (34.0-67.9) % Immature Gran % (Auto) (0.001-0.429) % Nucleat RBC Rel Count (0.00-0.2) % Eos # (Auto) (0.04-0.54) x10^3/uL Immature Gran # (Auto) (0.001-0.031) x10^3u/L Absolute Lymphs (auto) (1.32-3.57) x10^3/uL Absolute Monos (auto) (0.30-0.82) x10^3/uL Absolute Nucleated RBC (0.00-0.012) x10^3u/L Lymphocytes % (21.8-53.1) % Monocytes % (5.3-12.2) % Eosinophils % (0.8-7.0) % Basophils % (0.2-1.2) % Absolute Granulocytes (1.78-5.38) x10^3/uL Basophils # (0.01-0.08) x10^3/uL D-Dimer (0.0-0.50) mg/L Sodium (135-145) mmol/L Potassium (3.5-5.1) mmol/L Chloride (98-107) mmol/L Carbon Dioxide (22-30) mmol/L Anion Gap (5-15) MEQ/L BUN (9-20) mg/dL Creatinine (0.66-1.25) mg/dL Estimated GFR ML/MIN Glucose (74-106) mg/dL Calcium (8.4-10.2) mg/dL Magnesium (1.6-2.3) mg/dL Total Bilirubin (0.2-1.3) mg/dL AST (17-59) U/L ALT (0-50) U/L Alkaline Phosphatase (38-126) U/L Troponin I (0.000-0.033) ng/mL Serum Total Protein (6.3-8.2) g/dL Albumin (3.5-5.0) g/dL Amylase (30-110) U/L Lipase (23-300) U/L Urine Color (Yellow) Urine Appearance (Clear) Urine pH (4.6-8.0) Ur Specific [place] (1.005-1.030) Urine Protein (Negative) Urine Glucose (UA) (Negative) mg/dL Urine Ketones (Negative) Urine Blood (Negative) Urine Nitrite (Negative) Urine Bilirubin (Negative) Urine Urobilinogen (0.2) mg/dL Ur Leukocyte Esterase (Negative) U Hyaline Cast (Auto) (0-2) /LPF Urine Microscopic RBC (0-5) /HPF Urine Microscopic WBC (0-5) /HPF Ur Epithelial Cells (None Seen) /HPF Urine Bacteria (None Seen) /HPF Urine Culture Reflexed (NO) Urine Opiates Level (NEGATIVE) Ur Methadone (NEGATIVE) Urine Barbiturates (NEGATIVE) Ur Phencyclidine (PCP) (NEGATIVE) Urine Amphetamine (NEGATIVE) U Benzodiazepine Level (NEGATIVE) Urine Cocaine (NEGATIVE) Urine Marijuana (THC) (NEGATIVE) Ethyl Alcohol (0-10) mg/dL Monoscreen NEGATIVE (NEGATIVE) Influenza Type A Ag NEGATIVE (NEGATIVE) Influenza Type B Ag NEGATIVE (NEGATIVE) RSV (PCR) NEGATIVE (NEGATIVE) SARS-CoV-2 (PCR) NEGATIVE (NEGATIVE) Group A Strep Antibody NOT DETECTED (NEGATIVE) 06/21/24 06/21/24 06/21/24 Range/Units 03:20 03:20 03:20 WBC (4.23-9.07) x10^3/uL RBC (4.63-6.08) x10^6/uL Hgb (13.7-17.5) g/dL Hct (40.1-51.0) % MCV (79.0-92.2) fL MCH (25.7-32.2) pg MCHC (32.3-36.5) g/dL RDW (11.6-14.4) % Plt Count (163-337) x10^3/uL MPV (9.4-12.4) fL Gran % (34.0-67.9) % Immature Gran % (Auto) (0.001-0.429) % Nucleat RBC Rel Count (0.00-0.2) % Eos # (Auto) (0.04-0.54) x10^3/uL Immature Gran # (Auto) (0.001-0.031) x10^3u/L Absolute Lymphs (auto) (1.32-3.57) x10^3/uL Absolute Monos (auto) (0.30-0.82) x10^3/uL Absolute Nucleated RBC (0.00-0.012) x10^3u/L Lymphocytes % (21.8-53.1) % Monocytes % (5.3-12.2) % Eosinophils % (0.8-7.0) % Basophils % (0.2-1.2) % Absolute Granulocytes (1.78-5.38) x10^3/uL Basophils # (0.01-0.08) x10^3/uL D-Dimer 0.26 (0.0-0.50) mg/L Sodium 137 (135-145) mmol/L Potassium 3.5 (3.5-5.1) mmol/L Chloride 101 (98-107) mmol/L Carbon Dioxide 28 (22-30) mmol/L Anion Gap 11.9 (5-15) MEQ/L BUN 6 L (9-20) mg/dL Creatinine 0.66 (0.66-1.25) mg/dL Estimated GFR 131.8 ML/MIN Glucose 142 H (74-106) mg/dL Calcium 9.6 (8.4-10.2) mg/dL Magnesium 1.8 (1.6-2.3) mg/dL Total Bilirubin 0.60 (0.2-1.3) mg/dL AST 21 (17-59) U/L ALT 20 (0-50) U/L Alkaline Phosphatase 101 (38-126) U/L Troponin I < 0.012 (0.000-0.033) ng/mL Serum Total Protein 7.6 (6.3-8.2) g/dL Albumin 4.5 (3.5-5.0) g/dL Amylase 75 (30-110) U/L Lipase 100 (23-300) U/L Urine Color (Yellow) Urine Appearance (Clear) Urine pH (4.6-8.0) Ur Specific [place] (1.005-1.030) Urine Protein (Negative) Urine Glucose (UA) (Negative) mg/dL Urine Ketones (Negative) Urine Blood (Negative) Urine Nitrite (Negative) Urine Bilirubin (Negative) Urine Urobilinogen (0.2) mg/dL Ur Leukocyte Esterase (Negative) U Hyaline Cast (Auto) (0-2) /LPF Urine Microscopic RBC (0-5) /HPF Urine Microscopic WBC (0-5) /HPF Ur Epithelial Cells (None Seen) /HPF Urine Bacteria (None Seen) /HPF Urine Culture Reflexed (NO) Urine Opiates Level (NEGATIVE) Ur Methadone (NEGATIVE) Urine Barbiturates (NEGATIVE) Ur Phencyclidine (PCP) (NEGATIVE) Urine Amphetamine (NEGATIVE) U Benzodiazepine Level (NEGATIVE) Urine Cocaine (NEGATIVE) Urine Marijuana (THC) (NEGATIVE) Ethyl Alcohol (0-10) mg/dL Monoscreen (NEGATIVE) Influenza Type A Ag (NEGATIVE) Influenza Type B Ag (NEGATIVE) RSV (PCR) (NEGATIVE) SARS-CoV-2 (PCR) (NEGATIVE) Group A Strep Antibody (NEGATIVE) 06/21/24 Range/Units 03:20 WBC 8.2 (4.23-9.07) x10^3/uL RBC 4.60 L (4.63-6.08) x10^6/uL Hgb 14.3 (13.7-17.5) g/dL Hct 40.4 (40.1-51.0) % MCV 87.8 (79.0-92.2) fL MCH 31.1 (25.7-32.2) pg MCHC 35.4 (32.3-36.5) g/dL RDW 12.5 (11.6-14.4) % Plt Count 207 (163-337) x10^3/uL MPV 10.1 (9.4-12.4) fL Gran % 78.7 H (34.0-67.9) % Immature Gran % (Auto) 0.2 (0.001-0.429) % Nucleat RBC Rel Count 0.0 (0.00-0.2) % Eos # (Auto) 0.01 L (0.04-0.54) x10^3/uL Immature Gran # (Auto) 0.02 (0.001-0.031) x10^3u/L Absolute Lymphs (auto) 1.20 L (1.32-3.57) x10^3/uL Absolute Monos (auto) 0.52 (0.30-0.82) x10^3/uL Absolute Nucleated RBC 0.00 (0.00-0.012) x10^3u/L Lymphocytes % 14.6 L (21.8-53.1) % Monocytes % 6.3 (5.3-12.2) % Eosinophils % 0.1 L (0.8-7.0) % Basophils % 0.1 L (0.2-1.2) % Absolute Granulocytes 6.48 H (1.78-5.38) x10^3/uL Basophils # 0.01 (0.01-0.08) x10^3/uL D-Dimer (0.0-0.50) mg/L Sodium (135-145) mmol/L Potassium (3.5-5.1) mmol/L Chloride (98-107) mmol/L Carbon Dioxide (22-30) mmol/L Anion Gap (5-15) MEQ/L BUN (9-20) mg/dL Creatinine (0.66-1.25) mg/dL Estimated GFR ML/MIN Glucose (74-106) mg/dL Calcium (8.4-10.2) mg/dL Magnesium (1.6-2.3) mg/dL Total Bilirubin (0.2-1.3) mg/dL AST (17-59) U/L ALT (0-50) U/L Alkaline Phosphatase (38-126) U/L Troponin I (0.000-0.033) ng/mL Serum Total Protein (6.3-8.2) g/dL Albumin (3.5-5.0) g/dL Amylase (30-110) U/L Lipase (23-300) U/L Urine Color (Yellow) Urine Appearance (Clear) Urine pH (4.6-8.0) Ur Specific [place] (1.005-1.030) Urine Protein (Negative) Urine Glucose (UA) (Negative) mg/dL Urine Ketones (Negative) Urine Blood (Negative) Urine Nitrite (Negative) Urine Bilirubin (Negative) Urine Urobilinogen (0.2) mg/dL Ur Leukocyte Esterase (Negative) U Hyaline Cast (Auto) (0-2) /LPF Urine Microscopic RBC (0-5) /HPF Urine Microscopic WBC (0-5) /HPF Ur Epithelial Cells (None Seen) /HPF Urine Bacteria (None Seen) /HPF Urine Culture Reflexed (NO) Urine Opiates Level (NEGATIVE) Ur Methadone (NEGATIVE) Urine Barbiturates (NEGATIVE) Ur Phencyclidine (PCP) (NEGATIVE) Urine Amphetamine (NEGATIVE) U Benzodiazepine Level (NEGATIVE) Urine Cocaine (NEGATIVE) Urine Marijuana (THC) (NEGATIVE) Ethyl Alcohol (0-10) mg/dL Monoscreen (NEGATIVE) Influenza Type A Ag (NEGATIVE) Influenza Type B Ag (NEGATIVE) RSV (PCR) (NEGATIVE) SARS-CoV-2 (PCR) (NEGATIVE) Group A Strep Antibody (NEGATIVE) - Progress Progress: unchanged Will see patient in: other (Spoke with & discussed pt with Dr. Pichardo (Neurosurgeon)([id number]) who accepted pt for transfer to [facility] ER.) Counseled pt/family regarding: lab results, diagnosis, rad results Medical Desision Making - Diagnostic Testing Diagnostic test were ordered, analyzed, and reviewed by me: Yes Radiological Interpretation: Discussed w/ radiologist - Departure Departure Disposition: Transfer ([facility] ER) Clinical Impression: Dizziness, Hydrocephalus, Headache Condition: Stable Critical Care Time: No Referrals: ZO VILLEGAS [Primary Care Provider] - Follow up/PCP as directed
[2024-06-21] MEDS ORDERED: Sodium Chloride 0.9% 1000 ML 1,000 ML ONE ×2 (03:06→05:47)
[2024-06-21] MEDS: Sodium Chloride 0.9% 1000 ML 1,000 ML IV STA (03:16)
[2024-06-21 03:24] LABS: Absolute Neutrophil Ct (ANC) 6.48 x10^3/uL (1.78-5.38); BASOPHIL % 0.1 % (0.2-1.2); Basophil (Absolute #) 0.01 x10^3/uL (0.01-0.08); Eosinophil % 0.1 % (0.8-7.0); Eosinophil (Absolute #) 0.01 x10^3/uL (0.04-0.54); Hematocrit 40.4 % (40.1-51.0); Hemoglobin 14.3 g/dL (13.7-17.5); IMMATURE GRAN # 0.02 x10^3u/L (0.001-0.031); IMMATURE GRAN % 0.2 % (0.001-0.429); Lymphocytes % 14.6 % (21.8-53.1); Mean Cell Volume 87.8 fL (79.0-92.2); Mean Corpuscular Hemoglobin 31.1 pg (25.7-32.2); Mean Corpuscular Hgb Concent. 35.4 g/dL (32.3-36.5); Mean Platelet Volume 10.1 fL (9.4-12.4); Monocyte (Absolute #) 0.52 x10^3/uL (0.30-0.82); Monocytes % 6.3 % (5.3-12.2); Neutrophil % 78.7 % (34.0-67.9); Platelet Count 207 x10^3/uL (163-337); Red Cell Distribution Width 12.5 % (11.6-14.4); White Blood Count 8.2 x10^3/uL (4.23-9.07)
[2024-06-21 03:42] LABS: ALBUMIN 4.5 g/dL (3.5-5.0); ANION GAP 11.9 MEQ/L (5-15); BILIRUBIN,TOTAL 0.6 mg/dL (0.2-1.3); Calcium 9.6 mg/dL (8.4-10.2); Creatinine 1 0.66 mg/dL (0.66-1.25); EST GLOMERULAR FILTRATION RATE 131.8 ML/MIN; MAGNESIUM 1.8 mg/dL (1.6-2.3); Potassium 3.5 mmol/L (3.5-5.1); Total Protein 7.6 g/dL (6.3-8.2)
[2024-06-21 03:59] LABS: Appearance Clear (Clear); Bacteria None Seen /HPF (None Seen); Bilirubin Negative (Negative); Blood Negative (Negative); Epithelial Cells None Seen /HPF (None Seen); Glucose, Urine Negative (Negative); Hyaline Casts NONE SEEN /LPF (0-2); Ketones Negative (Negative); Leukocyte Esterase Negative (Negative); Nitrite Negative (Negative); Protein,Urine Dip Negative (Negative); RBC 0-2 /HPF (0-5); Urobilinogen 0.2 mg/dL (0.2); WBC 0-2 /HPF (0-5)
[2024-06-21 04:03] LABS: INFLUENZA A NEGATIVE (NEGATIVE); INFLUENZA B NEGATIVE (NEGATIVE); RESPIRATORY SYNCTIAL VIRUS NEGATIVE (NEGATIVE); SARS-CoV-2 Xpert Express NEGATIVE (NEGATIVE)
[2024-06-21 04:09] LABS: Amphetamine,Urine NEGATIVE (NEGATIVE); Barbiturate,Urine NEGATIVE (NEGATIVE); Benzodiazepine,Urine NEGATIVE (NEGATIVE); Cocaine,Urine NEGATIVE (NEGATIVE); Methadone,Urine NEGATIVE (NEGATIVE); Opiate,Urine NEGATIVE (NEGATIVE); PCP,Urine NEGATIVE (NEGATIVE); THC,Urine POSITIVE (NEGATIVE)
--- NOTE | 2024-06-21 04:22 | XRAY ---
CLINICAL HISTORY: dizziness COMPARISON: None. TECHNIQUE: Axial non-contrast CT scan of the brain was performed from the skull base to the high parietal region. One of the following dose reduction techniques were utilized for this exam: Automated exposure control, adjustment of the mA and/or kV according to patient size, use of iterative reconstruction. FINDINGS: Brain Parenchyma: Prominent infra cerebellar CSF space is seen indenting the inferior surface of the cerebellum and communicating with the 4th ventricle. Normal attenuation of the cerebral hemispheres, cerebellum, and brainstem. No evidence of hemorrhage, or mass effect. No abnormal areas of hypo- or hyperattenuation. Ventricular System: Mild dilatation of the supra and to less extent infratentorial ventricular system is noted. Subarachnoid Spaces: Normal sulci and cisterns. No evidence of subarachnoid hemorrhage or extra-axial fluid collections. Sinuses: Clear paranasal sinuses. No evidence of sinusitis or mucosal thickening. Mastoid Air Cells: Clear mastoid air cells. No evidence of mastoiditis. Skull and Meninges: Normal skull morphology. 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 Clinical correlation is recommended and further evaluation by MRI brain may be considered. Electronically Signed by: Peter Castellanos MD. (06/21/2024 04:16:57 EDT)
[2024-06-21] MEDS: Sodium Chloride 0.9% 1000 ML 1,000 ML IV SCH (05:48)
[2024-06-21 07:48] VITALS: RESP 16
--- NOTE | 2024-06-21 08:04 | XRAY ---
Indication: Dyspnea. Comparison: None PA/lateral chest clear with a few incidental tiny left lung and splenic calcified granulomas. Heart and mediastinal structures within normal limits. Bony thorax intact with minimally elongated dextroscoliosis and minimal remote appearing T11/T12 anterior wedging deformities. Impression: Nonacute chest with chronic features.
[2024-06-21 08:16] VITALS: BP 90/51; PULSE 100; O2SAT 100
== END 2024-06-21 10:02 | disposition short-term general hospital (02) ==
LOC: ED 02:31
DX: G91.9 Hydrocephalus, unspecified (principal); R42 Dizziness and giddiness; R51.9 Headache, unspecified; R06.02 Shortness of breath; R11.0 Nausea; Z79.899 Other long term (current) drug therapy
CPT/HCPCS: 0241U; 36000; 36415; 70450; 71046; 80053; 80307; 81001; 82077; 82150; 83690; 83735; 84484; 85025; 85379; 86308; 87651; 93005; 96360; 96361; 99285; 96365

== ENCOUNTER 2024-09-08 02:32 | Observation (INO) | payer OTHER ==
--- NOTE | 2024-09-08 02:58 | ERPHSYRPT ---
- History of Present Illness Time Seen by Provider: 09/08/24 02:58 Historian: patient, family Exam Limitations: no limitations Physician History: This is a thin 29-year-old white male patient who arrives by private vehicle secondary to relatively sudden onset of abdominal pain, vomiting and diarrhea prior to arrival to the emergency department. Patient states he had multiple episodes of vomiting and retching. He had episodes of diarrhea prior to going to bed. Patient denies chest pain. He denies shortness of breath. He has no known exposures to individuals similar symptoms or who have been diagnosed with the flu. Patient does have a history of Crohn's disease. Patient heart rate was noticed to be rapid in the 130s to 160s range. A twelve-lead EKG showed atrial fibrillation with RVR. Approximately 5 months ago, patient was diagnosed with atrial fibrillation, monitored in the hospital setting, wore a Holter monitor for approximately 2 weeks then was seen by his clinical material handler, Dr. Szymanski, and placed on long-acting diltiazem. He is not on any anticoagulation therapy. He states that he has been taking this medication as prescribed. Patient also has a history of bipolar disorder and depression. He does use marijuana occasionally. He is taking Geodon and Effexor. Timing/Duration: today Abdominal Pain Onset Location: generalized abdomen Severity of Pain-Max: mild (To moderate) Severity of Pain-Current: mild (To moderate) Modifying Factors: Improves With: vomiting Associated Symptoms: diarrhea, nausea, vomiting, No chest pain, No shortness of breath Previous symptoms: same symptoms as today, no recent treatment Allergies/Adverse Reactions: No Known Drug Allergies Allergy (Verified 06/21/24 02:43) Home Medications: Venlafaxine HCl [Venlafaxine HCl ER] 150 mg PO HS 05/29/24 [History] ziprasidone HCL [Ziprasidone HCl] 80 mg PO HS 05/29/24 [History] dilTIAZem HCL [Diltiazem 12Hr ER] 1 cap PO BID 09/08/24 [History] Hx Tetanus, Diphtheria Vaccination/Date Given: No Hx Influenza Vaccination/Date Given: Yes Hx Pneumococcal Vaccination/Date Given: No Travel Risk - International Travel Have you traveled outside of the country in past 3 weeks: No - Emerging Infectious Disease Are you exhibiting symptoms associated with any current EIDs: No - Review of Systems Constitutional: No Symptoms Eyes: No Symptoms Ears, Nose, & Throat: No Symptoms Respiratory: No Symptoms Cardiac: Palpitations Abdominal/Gastrointestinal: Abdominal Pain, Nausea, Vomiting, Diarrhea, Appetite Changes Genitourinary Symptoms: No Symptoms Musculoskeletal: No Symptoms Skin: No Symptoms Neurological: No Symptoms Psychological: No Symptoms Endocrine: No Symptoms Hematologic/Lymphatic: No Symptoms Immunological/Allergic: No Symptoms All Other Systems: Reviewed and Negative - Past Medical History Pertinent Past Medical History: Yes Neurological History: No Pertinent History ENT History: No Pertinent History Cardiac History: No Pertinent History Respiratory History: No Pertinent History Endocrine Medical History: No Pertinent History Musculoskeletal History: No Pertinent History GI Medical History: Crohns Disease History: No Pertinent History Psycho-Social History: Bipolar, Depression Male Reproductive Disorders: No Pertinent History - Past Surgical History Past Surgical History: Yes Neuro Surgical History: No Pertinent History Cardiac: No Pertinent History Respiratory: No Pertinent History Gastrointestinal: No Pertinent History Genitourinary: No Pertinent History Musculoskeletal: Other Male Surgical History: No Pertinent History Other Surgical History: bilateral fourth and fifth finger separation - Social History Smoking Status: Never smoker Exposure to second hand smoke: No Drug Use: none, marijuana - Social Determinants of Health Will the patient participate in the screening: Yes Do you worry about a steady place to live?: No In the past 12 months,have you had to go without utilities?: No Transportation Issues: No Has anyone in your support network made you feel unsafe?: No Have you or anyone in your house had to go without enough: No - Nursing Vital Signs Nursing Vital Signs: Initial Vital Signs Temperature 99.5 F 09/08/24 02:52 Pulse Rate 119 H 09/08/24 02:52 Blood Pressure 120/78 09/08/24 02:52 O2 Sat by Pulse Oximetry 99 09/08/24 02:52 Pain Scale Pain Intensity 0 - Physical Exam General Appearance: mild distress, alert, anxiety, thin Eye Exam: PERRL/EOMI Ears, Nose, Throat Exam: normal ENT inspection, moist mucous membranes Neck Exam: normal inspection, non-tender, supple, full range of motion Respiratory Exam: normal breath sounds, lungs clear, airway intact, No chest tenderness, No respiratory distress Cardiovascular Exam: tachycardia, irregular Gastrointestinal/Abdomen Exam: soft, normal bowel sounds, tenderness, No guarding (Mild diffuse to palpation), No rebound Rectal Exam: not done Back Exam: normal inspection, normal range of motion, No CVA tenderness, No vertebral tenderness Extremity Exam: normal inspection, normal range of motion, pelvis stable Neurologic Exam: alert, oriented x 3, cooperative, negative notcher II-XII nml as tested, normal mood/affect, nml cerebellar function, nml station & gait, sensation nml Skin Exam: normal color, warm, dry Lymphatic Exam: No adenopathy SpO2 Interpretation: normal O2 Delivery: Room Air - Course Nursing assessment & vital signs reviewed: Yes EKG Interpreted by Me: RATE (128), A-fib, NORMAL AXIS, NORMAL INTERVALS, NORMAL QRS, Other (No acute ischemia. QTc is 424) Ordered Tests: Active Orders 24 hr Category Date Time Status Electrical Tryout Person STAT Care 09/08/24 03:06 Active IV Insertion STAT Care 09/08/24 03:05 Active Pulse Oximetry (ED) STAT Care 09/08/24 03:05 Active ABDOMEN AND PELVIS W/0 CONTRAS [CT] Stat Exams 09/08/24 03:35 Completed CBC W DIFF Stat Lab 09/08/24 03:00 Completed CMP Stat Lab 09/08/24 03:00 Completed D-DIMER QUANTITATIVE Stat Lab 09/08/24 03:00 Completed MAGNESIUM Stat Lab 09/08/24 03:00 Completed MONO SCREEN Stat Lab 09/08/24 03:00 Completed NT PRO BNPII Stat Lab 09/08/24 03:00 Completed PROTIME WITH INR Stat Lab 09/08/24 03:00 Completed TROPONIN Q4H Lab 09/08/24 03:00 Completed TROPONIN Q4H Lab 09/08/24 07:15 Ordered TROPONIN Q4H Lab 09/08/24 11:15 Ordered UA W/RFX UR CULTURE Stat Lab 09/08/24 03:44 Ordered Medication Summary Generic Name Dose Route Start Last Admin Trade Name Freq PRN Reason Stop Dose Admin Diltiazem HCl 100 mls @ 5 mls/hr 09/08/24 03:22 09/08/24 04:57 Cardizem Drip 100 Mg/100 Ml D5w IV 10/08/24 03:21 12.5 mg/hr .Q20H PRN 12.5 mls/hr HEART RATE/ A-FIB Titration Protocol 5 MG/HR Discontinued Medications Generic Name Dose Route Start Last Admin Trade Name Freq PRN Reason Stop Dose Admin Diltiazem HCl 20 mg 09/08/24 03:06 09/08/24 03:13 Diltiazem Hcl Iv 5 Mg/Ml Vial IV 09/08/24 03:07 20 mg STAT ONE Administration Diltiazem HCl Confirm 09/08/24 03:12 Diltiazem Hcl Iv 5 Mg/Ml Vial Administered 09/08/24 03:13 Dose 50 mg IV .STK-MED ONE Enoxaparin Sodium 60 mg 09/08/24 03:40 09/08/24 03:42 Enoxaparin Sodium 80 Mg/0.8 Ml Syringe SQ 09/08/24 03:41 60 mg STAT ONE Administration Enoxaparin Sodium Confirm 09/08/24 03:41 Enoxaparin Sodium 80 Mg/0.8 Ml Syringe Administered 09/08/24 03:42 Dose 80 mg SQ .STK-MED ONE Ondansetron HCl 4 mg 09/08/24 04:01 09/08/24 04:07 Ondansetron Hcl 4 Mg/2 Ml Vial IV 09/08/24 04:02 4 mg STAT ONE Administration Ondansetron HCl Confirm 09/08/24 04:05 Ondansetron Hcl 4 Mg/2 Ml Vial Administered 09/08/24 04:06 Dose 4 mg .ROUTE .STK-MED ONE Lab/Rad Data: Laboratory Result Diagrams 09/08/24 03:00 09/08/24 03:00 Laboratory Results 09/08/24 09/08/24 09/08/24 Range/Units 03:40 03:00 03:00 WBC (4.23-9.07) x10^3/uL RBC (4.63-6.08) x10^6/uL Hgb (13.7-17.5) g/dL Hct (40.1-51.0) % MCV (79.0-92.2) fL MCH (25.7-32.2) pg MCHC (32.3-36.5) g/dL RDW (11.6-14.4) % Plt Count (163-337) x10^3/uL MPV (9.4-12.4) fL Gran % (34.0-67.9) % Immature Gran % (Auto) (0.001-0.429) % Nucleat RBC Rel Count (0.00-0.2) % Eos # (Auto) (0.04-0.54) x10^3/uL Immature Gran # (Auto) (0.001-0.031) x10^3u/L Absolute Lymphs (auto) (1.32-3.57) x10^3/uL Absolute Monos (auto) (0.30-0.82) x10^3/uL Absolute Nucleated RBC (0.00-0.012) x10^3u/L Lymphocytes % (21.8-53.1) % Monocytes % (5.3-12.2) % Eosinophils % (0.8-7.0) % Basophils % (0.2-1.2) % Absolute Granulocytes (1.78-5.38) x10^3/uL Basophils # (0.01-0.08) x10^3/uL PT (9.4-12.5) SECONDS INR (0.8-3.0) D-Dimer (0.0-0.50) mg/L Sodium (135-145) mmol/L Potassium (3.5-5.1) mmol/L Chloride (98-107) mmol/L Carbon Dioxide (22-30) mmol/L Anion Gap (5-15) MEQ/L BUN (9-20) mg/dL Creatinine (0.66-1.25) mg/dL Estimated GFR ML/MIN Glucose (74-106) mg/dL Calcium (8.4-10.2) mg/dL Magnesium (1.6-2.3) mg/dL Total Bilirubin (0.2-1.3) mg/dL AST (17-59) U/L ALT (0-50) U/L Alkaline Phosphatase (38-126) U/L Troponin I < 0.012 (0.000-0.033) ng/mL NT-Pro-B Natriuret Pep < 20.0 (<300) pg/mL Serum Total Protein (6.3-8.2) g/dL Albumin (3.5-5.0) g/dL Monoscreen NEGATIVE (NEGATIVE) Influenza Type A Ag NEGATIVE (NEGATIVE) Influenza Type B Ag NEGATIVE (NEGATIVE) RSV (PCR) NEGATIVE (NEGATIVE) SARS-CoV-2 (PCR) NEGATIVE (NEGATIVE) Slides for Path Review 09/08/24 09/08/24 09/08/24 Range/Units 03:00 03:00 03:00 WBC 10.8 H (4.23-9.07) x10^3/uL RBC 5.28 (4.63-6.08) x10^6/uL Hgb 16.5 (13.7-17.5) g/dL Hct 45.5 (40.1-51.0) % MCV 86.2 (79.0-92.2) fL MCH 31.3 (25.7-32.2) pg MCHC 36.3 (32.3-36.5) g/dL RDW 11.5 L (11.6-14.4) % Plt Count 218 (163-337) x10^3/uL MPV 10.2 (9.4-12.4) fL Gran % 86.7 H (34.0-67.9) % Immature Gran % (Auto) 0.3 (0.001-0.429) % Nucleat RBC Rel Count 0.0 (0.00-0.2) % Eos # (Auto) 0.02 L (0.04-0.54) x10^3/uL Immature Gran # (Auto) 0.03 (0.001-0.031) x10^3u/L Absolute Lymphs (auto) 0.55 L (1.32-3.57) x10^3/uL Absolute Monos (auto) 0.80 (0.30-0.82) x10^3/uL Absolute Nucleated RBC 0.00 (0.00-0.012) x10^3u/L Lymphocytes % 5.1 L (21.8-53.1) % Monocytes % 7.4 (5.3-12.2) % Eosinophils % 0.2 L (0.8-7.0) % Basophils % 0.3 (0.2-1.2) % Absolute Granulocytes 9.37 H (1.78-5.38) x10^3/uL Basophils # 0.03 (0.01-0.08) x10^3/uL PT 11.5 (9.4-12.5) SECONDS INR 1.06 (0.8-3.0) D-Dimer 0.30 (0.0-0.50) mg/L Sodium 137 (135-145) mmol/L Potassium 3.8 (3.5-5.1) mmol/L Chloride 101 (98-107) mmol/L Carbon Dioxide 26 (22-30) mmol/L Anion Gap 13.7 (5-15) MEQ/L BUN 11 (9-20) mg/dL Creatinine 0.63 L (0.66-1.25) mg/dL Estimated GFR 133.7 ML/MIN Glucose 118 H (74-106) mg/dL Calcium 9.8 (8.4-10.2) mg/dL Magnesium 1.7 (1.6-2.3) mg/dL Total Bilirubin 0.90 (0.2-1.3) mg/dL AST 27 (17-59) U/L ALT 16 (0-50) U/L Alkaline Phosphatase 104 (38-126) U/L Troponin I (0.000-0.033) ng/mL NT-Pro-B Natriuret Pep (<300) pg/mL Serum Total Protein 8.2 (6.3-8.2) g/dL Albumin 5.0 (3.5-5.0) g/dL Monoscreen (NEGATIVE) Influenza Type A Ag (NEGATIVE) Influenza Type B Ag (NEGATIVE) RSV (PCR) (NEGATIVE) SARS-CoV-2 (PCR) (NEGATIVE) Slides for Path Review YES - Progress Progress: improved Progress Note: 09/08/24 03:42 My medical decision making and the assignment of moderate to high complexity of this patient's medical issue today is based on review of the patient's past medical history, review of the patient's medication list, review of the patient drug allergy list, history present illness and physical findings on examination. The workup in this patient includes placement of intravenous line, infusion of 20 mg of intravenous Cardizem, twelve-lead EKG, CBC, CMP, BNP, troponin level, magnesium level, urinalysis, viral swabs, monotest, CT scan of the abdomen pelvis without contrast. Differential diagnosis includes but is not limited to myocardial infarction, viral illness, dehydration, urinary tract infection, pancreatitis, exacerbation of Crohn's disease, electrolyte abnormalities and arrhythmia 09/08/24 04:09 I interpreted the repeat twelve-lead EKG that was performed on 09/08/2024 at 3:21 AM. It shows rate controlled atrial fibrillation with a heart rate of 81, there is no evidence of any acute ischemia on this twelve-lead EKG. QTc is 392. 09/08/24 05:35 I have interpreted the laboratory data results that have returned thus far. Patient has a mildly elevated white blood cell count. His urinalysis is pending. Patient has a normal troponin level and his viral swabs and monotest are all negative. We are awaiting the CT scan of the abdomen pelvis results that are being read by radiology. 09/08/24 06:[address] scan of the abdomen pelvis without contrast was interpreted by the radiologist and I reviewed the impression. The impression states no acute abdomen. Mild subcutaneous fat stranding in air foci in the subcutaneous plane of the anterior abdominal wall right of the umbilicus. There is mild anterior wedging of T12 and T11. There is no evidence of bowel wall thickening. The appendix is seen and it is normal. I spoke with telehospitalist Dr. Phillip. I reviewed the patient history, presenting complaint, physical findings on examination and the results of our workup. We both agreed the patient will be placed in observation in the intensive care unit as he will be receiving a Cardizem drip. Discussed with : Sarahi Counseled pt/family regarding: lab results, diagnosis, rad results Medical Desision Making - Diagnostic Testing Diagnostic test were ordered, analyzed, and reviewed by me: Yes Radiological Interpretation: Reviewed by me, Teleradiologist Report - Risk of complications The pt has a high risk of morbidity or mortality based on: Decision regarding hospitilization or escalation of hosp level of care - Departure Departure Disposition: Observation Clinical Impression: Nausea vomiting and diarrhea, Abdominal pain, Atrial fibrillation with RVR Condition: Stable Critical Care Time: No Referrals: ZO VILLEGAS [Primary Care Provider] - Follow up/PCP as directed
[2024-09-08] MEDS ORDERED: Cardizem IV 50 MG/10 ML IV ONE (03:12)
[2024-09-08] MEDS: Cardizem IV 50 MG/10 ML IV ONE (03:13)
[2024-09-08 03:15] LABS: Absolute Neutrophil Ct (ANC) 9.37 x10^3/uL (1.78-5.38); BASOPHIL % 0.3 % (0.2-1.2); Basophil (Absolute #) 0.03 x10^3/uL (0.01-0.08); Eosinophil % 0.2 % (0.8-7.0); Eosinophil (Absolute #) 0.02 x10^3/uL (0.04-0.54); Hematocrit 45.5 % (40.1-51.0); Hemoglobin 16.5 g/dL (13.7-17.5); IMMATURE GRAN # 0.03 x10^3u/L (0.001-0.031); IMMATURE GRAN % 0.3 % (0.001-0.429); Lymphocyte (Absolute #) 0.55 x10^3/uL (1.32-3.57); Lymphocytes % 5.1 % (21.8-53.1); Mean Cell Volume 86.2 fL (79.0-92.2); Mean Corpuscular Hemoglobin 31.3 pg (25.7-32.2); Mean Corpuscular Hgb Concent. 36.3 g/dL (32.3-36.5); Mean Platelet Volume 10.2 fL (9.4-12.4); Monocytes % 7.4 % (5.3-12.2); Neutrophil % 86.7 % (34.0-67.9); Platelet Count 218 x10^3/uL (163-337); Red Blood Count 5.28 x10^6/uL (4.63-6.08); Red Cell Distribution Width 11.5 % (11.6-14.4); White Blood Count 10.8 x10^3/uL (4.23-9.07)
[2024-09-08] MEDS ORDERED: ENOXAPARIN SODIUM SQ ONE ×2 (03:30→03:41)
[2024-09-08] MEDS: CARDIZEM DRIP 100 MG/100 ML D5W 100 ML IV PRN (03:39)
[2024-09-08] MEDS: ENOXAPARIN SODIUM SQ ONE (03:42)
[2024-09-08 03:52] LABS: D-DIMER QUANTITATIVE 0.3 mg/L (0.0-0.50); INR 1.06 (0.8-3.0); PROTIME 11.5 SECONDS (9.4-12.5)
[2024-09-08 04:00] LABS: ANION GAP 13.7 MEQ/L (5-15); BILIRUBIN,TOTAL 0.9 mg/dL (0.2-1.3); Calcium 9.8 mg/dL (8.4-10.2); Creatinine 1 0.63 mg/dL (0.66-1.25); EST GLOMERULAR FILTRATION RATE 133.7 ML/MIN; MAGNESIUM 1.7 mg/dL (1.6-2.3); Potassium 3.8 mmol/L (3.5-5.1); Total Protein 8.2 g/dL (6.3-8.2)
[2024-09-08] MEDS ORDERED: Zofran 4 MG/2 ML VIAL ONE (04:05)
[2024-09-08 04:06] LABS: NT PRO BNPII < 20.0 pg/mL (<300); TROPONIN < 0.012 ng/mL (0.000-0.033)
[2024-09-08] MEDS: Zofran 4 MG/2 ML VIAL IV ONE (04:07)
[2024-09-08 04:43] LABS: INFLUENZA A NEGATIVE (NEGATIVE); INFLUENZA B NEGATIVE (NEGATIVE); RESPIRATORY SYNCTIAL VIRUS NEGATIVE (NEGATIVE); SARS-CoV-2 Xpert Express NEGATIVE (NEGATIVE)
[2024-09-08 05:00] LABS: Slide Review 1 YES
--- NOTE | 2024-09-08 05:54 | XRAY ---
CLINICAL HISTORY: N/V/D; ABD pain COMPARISON: None. TECHNIQUE: Contiguous axial images were obtained from the level of the diaphragm to the pubic symphysis without intravenous or oral contrast. Coronal and sagittal reconstructions were likewise performed and indicated to increase the sensitivity for detecting clinically relevant pathology. CT scan was performed according to ALARA (as low as reasonably achievable). FINDINGS: The visualized lung bases are clear. Evaluation of the abdominal and pelvic visceral organs is limited without intravenous contrast. Few calcified granulomas are noted in the liver. The gallbladder is present. Multiple calcified granulomas are noted in the spleen. The unenhanced pancreas is grossly unremarkable. The adrenal glands are grossly unremarkable. The kidneys are normal in size. There is no hydronephrosis. No perinephric stranding is seen. The ureters are normal in caliber. No evidence of focal or diffuse bowel wall thickening or evidence of bowel obstruction is seen. The appendix appears normal. The urinary bladder is normal in contour. No adenopathy or fluid collections are seen. Pelvic viscera are grossly unremarkable. The aorta is normal in caliber. Mild subcutaneous fat stranding and few air foci are noted in the subcutaneous plane of anterior abdominal wall on the right side at the level of umbilicus. No aggressive appearing osseous lesions are identified. Mild anterior wedging of T10 and T11 vertebra is noted. Schmorl's node are noted involving all the visualized thoracic and most of the lumbar vertebrae. Possibility of Scheuermann disease. No kyphoscoliosis is noted in the current study. Suggested follow up. IMPRESSION: 1. No acute abdominal abnormality detected. Contrast study suggested for better evaluation if clinically indicated. 2. Multiple calcified granulomas in the spleen. 3. Few calcified granulomas in the liver. 4. Mild subcutaneous fat stranding and few air foci are noted in the subcutaneous plane of anterior abdominal wall on the right side at the level of umbilicus. Clinical correlation for underlying trauma is suggested. 5. Mild anterior wedging of T10 and T11 vertebra is noted. Schmorl's node are noted involving all the visualized thoracic and most of the lumbar vertebrae. Possibility of Scheuermann disease. No kyphoscoliosis is noted in the current study. Suggested follow up. Electronically Signed by: Abundio Richards MD. (09/08/2024 05:50:03 EST)
[2024-09-08] MEDS ORDERED: TYLENOL 325 MG PO PRN (06:35)
[2024-09-08] MEDS ORDERED: Zofran 4 MG/2 ML VIAL IV PRN (06:35)
--- NOTE | 2024-09-08 07:36 | PCM.HP ---
History of Present Illness - Chief Complaint Chief Complaint: Atrial fibrillation with RVR Date: 09/08/24 History of Present Illness: is a 29 year old male with PMHX of Autism, crohn's, bipolar, and depression. Pt arrived to ER for sudden onset of abdominal pain, vomiting and diarrhea prior to arrival to the emergency department. Patient states he had multiple episodes of vomiting and retching. He had episodes of diarrhea prior to going to bed. Patient denies chest pain. He denies shortness of breath. He has no known exposures to individuals similar symptoms or who have been diagnosed with the flu. Patient does have a history of Crohn's disease. Patient heart rate was noticed to be rapid in the 130s to 160s range. A twelve- lead EKG showed atrial fibrillation with RVR. Approximately 5 months ago, patient was diagnosed with atrial fibrillation, monitored in the hospital setting, wore a Holter monitor for approximately 2 weeks then was seen by his hand cultivator, Dr. Szymanski, and placed on long-acting diltiazem. He is not on any anticoagulation therapy. He states that he has been taking this medication as prescribed. Since admission HR now controlled on cardizem gtt. He continues to have diarrhea but N/V is controlled. He overall is starting to feel better. He denies CP, SOB, abd. pain, N/V. - Review of Systems Constitutional: No Fever, No Chills Eyes: No Symptoms Ears, Nose, & Throat: No Symptoms Respiratory: No Cough, No Short Of Breath Cardiac: Palpitations, No Chest Pain, No Edema, No Syncope Abdominal/Gastrointestinal: Nausea, Vomiting, Diarrhea, No Abdominal Pain Genitourinary Symptoms: No Dysuria Musculoskeletal: No Back Pain, No Neck Pain Skin: No Rash Neurological: No Dizziness, No Focal Weakness, No Sensory Changes Psychological: No Symptoms Endocrine: No Symptoms Hematologic/Lymphatic: No Symptoms Immunological/Allergic: No Symptoms Medications & Allergies Home Medications: Home Medication List Venlafaxine HCl [Venlafaxine HCl ER] 150 mg PO HS 05/29/24 [History Confirmed 09/08/24] ziprasidone HCL [Ziprasidone HCl] 80 mg PO HS 05/29/24 [History Confirmed 09/08/24] dilTIAZem HCL [Diltiazem 12Hr ER] 1 cap PO BID 09/08/24 [History Confirmed 09/08/24] Allergies/Adverse Reactions: Allergies Allergy/AdvReac Type Severity Reaction Status Date / Time No Known Drug Allergies Allergy Verified 09/08/24 06:56 - Past Medical History Past Medical History: Yes Neurological History: No Pertinent History ENT History: No Pertinent History Cardiac History: No Pertinent History Respiratory History: No Pertinent History Endocrine Medical History: No Pertinent History Musculoskelatal History: No Pertinent History GI Medical History: Crohns Disease History: No Pertinent History Pyscho-Social History: Bipolar, Depression Male Reproductive Disorders: No Pertinent History Comment: A-fib with RVR March 2024 - sees Dr. Szymanski - Past Surgical History Past Surgical History: Yes Neuro Surgical History: No Pertinent History Cardiac History: No Pertinent History Respiratory Surgery: No Pertinent History GI Surgical History: No Pertinent History Genitourinary Surgical Hx: No Pertinent History Musculskeletal Surgical Hx: Other Male Surgical History: No Pertinent History Other Surgical History: bilateral fourth and fifth finger separation - Social History Smoking Status: Never smoker Exposure to second hand smoke: No Alcohol: None Drug Use: none, marijuana - Social Determinants of Health Will the patient participate in the screening: Yes Do you worry about a steady place to live?: No Do you have any problems with any of the following?: No known problems In the past 12 months,have you had to go without utilities?: No Have you or anyone in your house had to go without enough: No Transportation Issues: No Has anyone in your support network made you feel unsafe?: No Does the patient want assistance with any of the above?: No - Physical Exam Vital Signs: Vital Signs - 24 hr Temp Pulse Resp BP BP Pulse Ox 09/08/24 07:24 92 H 09/08/24 07:08 99.5 F 93 H 18 111/68 96 09/08/24 07:00 96 09/08/24 06:35 90 18 111/68 09/08/24 06:00 94 H 25 H 115/76 95 09/08/24 05:30 107 H 17 117/75 95 09/08/24 05:00 98 H 18 112/66 96 09/08/24 04:30 105 H 28 H 110/80 95 09/08/24 04:25 103 H 18 98/72 95 09/08/24 04:00 101 H 18 105/67 97 09/08/24 03:58 103 H 17 113/67 96 09/08/24 03:30 91 H 17 113/59 09/08/24 03:05 98 09/08/24 03:00 97 H 15 113/73 97 09/08/24 02:52 99.5 F 119 H 120/78 99 General Appearance: no apparent distress, alert Neurologic Exam: alert, oriented x 3, cooperative, normal mood/affect, nml cerebellar function, nml station & gait, sensation nml, No motor deficits Eye Exam: PERRL/EOMI, eyes nml inspection Ears, Nose, Throat Exam: normal ENT inspection, TMs normal, pharynx normal, moist mucous membranes Neck Exam: normal inspection, non-tender, supple, full range of motion Respiratory Exam: normal breath sounds, lungs clear, No respiratory distress Cardiovascular Exam: regular rate/rhythm, normal heart sounds, normal peripheral pulses Gastrointestinal/Abdomen Exam: soft, normal bowel sounds, No tenderness, No mass Back Exam: normal inspection, normal range of motion, No CVA tenderness, No vertebral tenderness Extremity Exam: normal inspection, normal range of motion, pelvis stable Skin Exam: normal color, warm, dry, No rash Lymphatic Exam: No adenopathy Results - Labs Lab/Micro Results: Lab Results-Last 24 Hours 09/08/24 09/08/24 09/08/24 Range/Units 03:00 03:00 03:00 WBC 10.8 H (4.23-9.07) x10^3/uL RBC 5.28 (4.63-6.08) x10^6/uL Hgb 16.5 (13.7-17.5) g/dL Hct 45.5 (40.1-51.0) % MCV 86.2 (79.0-92.2) fL MCH 31.3 (25.7-32.2) pg MCHC 36.3 (32.3-36.5) g/dL RDW 11.5 L (11.6-14.4) % Plt Count 218 (163-337) x10^3/uL MPV 10.2 (9.4-12.4) fL Gran % 86.7 H (34.0-67.9) % Immature Gran % (Auto) 0.3 (0.001-0.429) % Nucleat RBC Rel Count 0.0 (0.00-0.2) % Eos # (Auto) 0.02 L (0.04-0.54) x10^3/uL Immature Gran # (Auto) 0.03 (0.001-0.031) x10^3u/L Absolute Lymphs (auto) 0.55 L (1.32-3.57) x10^3/uL Absolute Monos (auto) 0.80 (0.30-0.82) x10^3/uL Absolute Nucleated RBC 0.00 (0.00-0.012) x10^3u/L Lymphocytes % 5.1 L (21.8-53.1) % Monocytes % 7.4 (5.3-12.2) % Eosinophils % 0.2 L (0.8-7.0) % Basophils % 0.3 (0.2-1.2) % Absolute Granulocytes 9.37 H (1.78-5.38) x10^3/uL Basophils # 0.03 (0.01-0.08) x10^3/uL PT 11.5 (9.4-12.5) SECONDS INR 1.06 (0.8-3.0) D-Dimer 0.30 (0.0-0.50) mg/L Sodium 137 (135-145) mmol/L Potassium 3.8 (3.5-5.1) mmol/L Chloride 101 (98-107) mmol/L Carbon Dioxide 26 (22-30) mmol/L Anion Gap 13.7 (5-15) MEQ/L BUN 11 (9-20) mg/dL Creatinine 0.63 L (0.66-1.25) mg/dL Estimated GFR 133.7 ML/MIN Glucose 118 H (74-106) mg/dL Calcium 9.8 (8.4-10.2) mg/dL Magnesium 1.7 (1.6-2.3) mg/dL Total Bilirubin 0.90 (0.2-1.3) mg/dL AST 27 (17-59) U/L ALT 16 (0-50) U/L Alkaline Phosphatase 104 (38-126) U/L Troponin I (0.000-0.033) ng/mL NT-Pro-B Natriuret Pep (<300) pg/mL Serum Total Protein 8.2 (6.3-8.2) g/dL Albumin 5.0 (3.5-5.0) g/dL Monoscreen (NEGATIVE) Influenza Type A Ag (NEGATIVE) Influenza Type B Ag (NEGATIVE) RSV (PCR) (NEGATIVE) SARS-CoV-2 (PCR) (NEGATIVE) Slides for Path Review YES 09/08/24 09/08/24 09/08/24 Range/Units 03:00 03:00 03:40 WBC (4.23-9.07) x10^3/uL RBC (4.63-6.08) x10^6/uL Hgb (13.7-17.5) g/dL Hct (40.1-51.0) % MCV (79.0-92.2) fL MCH (25.7-32.2) pg MCHC (32.3-36.5) g/dL RDW (11.6-14.4) % Plt Count (163-337) x10^3/uL MPV (9.4-12.4) fL Gran % (34.0-67.9) % Immature Gran % (Auto) (0.001-0.429) % Nucleat RBC Rel Count (0.00-0.2) % Eos # (Auto) (0.04-0.54) x10^3/uL Immature Gran # (Auto) (0.001-0.031) x10^3u/L Absolute Lymphs (auto) (1.32-3.57) x10^3/uL Absolute Monos (auto) (0.30-0.82) x10^3/uL Absolute Nucleated RBC (0.00-0.012) x10^3u/L Lymphocytes % (21.8-53.1) % Monocytes % (5.3-12.2) % Eosinophils % (0.8-7.0) % Basophils % (0.2-1.2) % Absolute Granulocytes (1.78-5.38) x10^3/uL Basophils # (0.01-0.08) x10^3/uL PT (9.4-12.5) SECONDS INR (0.8-3.0) D-Dimer (0.0-0.50) mg/L Sodium (135-145) mmol/L Potassium (3.5-5.1) mmol/L Chloride (98-107) mmol/L Carbon Dioxide (22-30) mmol/L Anion Gap (5-15) MEQ/L BUN (9-20) mg/dL Creatinine (0.66-1.25) mg/dL Estimated GFR ML/MIN Glucose (74-106) mg/dL Calcium (8.4-10.2) mg/dL Magnesium (1.6-2.3) mg/dL Total Bilirubin (0.2-1.3) mg/dL AST (17-59) U/L ALT (0-50) U/L Alkaline Phosphatase (38-126) U/L Troponin I < 0.012 (0.000-0.033) ng/mL NT-Pro-B Natriuret Pep < 20.0 (<300) pg/mL Serum Total Protein (6.3-8.2) g/dL Albumin (3.5-5.0) g/dL Monoscreen NEGATIVE (NEGATIVE) Influenza Type A Ag NEGATIVE (NEGATIVE) Influenza Type B Ag NEGATIVE (NEGATIVE) RSV (PCR) NEGATIVE (NEGATIVE) SARS-CoV-2 (PCR) NEGATIVE (NEGATIVE) Slides for Path Review - Radiology Impressions Radiology Exams & Impressions: Radiology Procedures Category Date Time Status ABDOMEN AND PELVIS W/0 CONTRAS [CT] Stat Exams 09/08/24 03:35 Completed - Other Procedures and Tests Respiratory Therapy 09/08/24 06:35 EKG REPEAT IN AM Assessment/Plan (1) Atrial fibrillation with RVR Current Visit: Yes Status: Resolved Assessment & Plan: - cardizem gtt started in ER and continued -Has a hx of a-fib and followed by Dr. Scott - ICU - Tele - EKG- reviewed - Echo - Consult Cardiology - Stop cardizem gtt after 2nd dose of Diltiazem - started Diltiazem 30mg Q6 - TSH - Keep Mg+ > 2 and K+ > 4- replaced - Chads2- Vasc score- 0 Code(s): I48.91 - UNSPECIFIED ATRIAL FIBRILLATION (2) Nausea vomiting and diarrhea Current Visit: Yes Status: Acute Assessment & Plan: - C-diff, stool culture - protonix - Probiotics - Zofran PRN - Temp 99 this AM - Tylenol for fever PRN - CT abd/ pelvis: IMPRESSION: 1. No acute abdominal abnormality detected. Contrast study suggested for better evaluation if clinically indicated. 2. Multiple calcified granulomas in the spleen. 3. Few calcified granulomas in the liver. 4. Mild subcutaneous fat stranding and few air foci are noted in the subcutaneous plane of anterior abdominal wall on the right side at the level of umbilicus. Clinical correlation for underlying trauma is suggested. 5. Mild anterior wedging of T10 and T11 vertebra is noted. Schmorl's node are noted involving all the visualized thoracic and most of the lumbar vertebrae. Possibility of Scheuermann disease. No kyphoscoliosis is noted in the current study. Suggested follow up. Code(s): R11.2 - NAUSEA WITH VOMITING, UNSPECIFIED; R19.7 - DIARRHEA, UNSPECIFIED (3) Autism Current Visit: No Status: Chronic Assessment & Plan: - adds to complexity Code(s): F84.0 - AUTISTIC DISORDER (4) Abnormal finding on CT scan Current Visit: Yes Status: Acute Assessment & Plan: - fat stranding of abd seen - US for further eval Code(s): R93.89 - ABNORMAL FINDINGS ON DX IMAGING OF OTH BODY STRUCTURES (5) Bipolar 1 disorder Current Visit: No Status: Chronic Assessment & Plan: - continue home meds Code(s): F31.9 - BIPOLAR DISORDER, UNSPECIFIED (6) Depression Current Visit: No Status: Chronic Assessment & Plan: - continue home meds Code(s): F32.A - DEPRESSION, UNSPECIFIED (7) History of Crohn's disease Current Visit: No Status: Chronic Assessment & Plan: - No current exacerbation per CT VTE: Lovenox PPI: Protonix Next of KIN: parent, Yeimi Toth [phone] D/C plan: tomorrow Code status: Full Code(s): Z87.19 - PERSONAL HISTORY OF OTHER DISEASES OF THE DIGESTIVE SYSTEM
[2024-09-08] MEDS: MAG-OX 400 PO ONE (08:12)
[2024-09-08] MEDS: Klor Con PO ONE (08:13)
[2024-09-08] MEDS: Sodium Chloride 0.9% 1000 ML 1,000 ML IV SCH (08:33)
[2024-09-08] MEDS ORDERED: DILTIAZEM HCL 90 MG PO SCH (10:00)
[2024-09-08] MEDS: Cardizem 30 MG PO SCH (10:08)
[2024-09-08 12:20] LABS: Appearance Clear (Clear); Bacteria None Seen /HPF (None Seen); Bilirubin Negative (Negative); Blood Negative (Negative); Epithelial Cells None Seen /HPF (None Seen); Glucose, Urine Negative (Negative); Hyaline Casts NONE SEEN /LPF (0-2); Ketones 15 (Negative); Leukocyte Esterase Negative (Negative); Nitrite Negative (Negative); Protein,Urine Dip Negative (Negative); RBC 0-2 /HPF (0-5); Urobilinogen 0.2 mg/dL (0.2)
[2024-09-08] MEDS: ENOXAPARIN SODIUM SQ SCH (12:36)
[2024-09-08 13:48] LABS: 027 TOX PROD PRESUMPTIVE NEGATIVE (NEGATIVE); TOXIGENIC C. DIFF ORG NEGATIVE (NEGATIVE)
[2024-09-08] MEDS ORDERED: IMODIUM 2 MG PO PRN (14:54)
--- NOTE | 2024-09-08 15:44 | XRAY ---
Indication: Abnormal CT. Nausea and vomiting. Two-dimensional abdominal sonogram performed. Comparison: None Pancras not well seen due to overlying bowel gas. Visualized spleen demonstrates several tiny calcified granulomas. Visualized liver homogeneous. No organomegaly or free fluid. Visualized gallbladder normally distended without gallstones, wall thickening, or pericholecystic fluid. Common bile duct measures 3.6 mm. No intrahepatic biliary distention. Visualized aorta and IVC are normal in course and caliber. Right kidney measures 11.1 x 3.4 x 5.2 cm and left measures 11.3 x 4.6 x 5.8 cm and are sonographically normal. Impression: Nonvisualization pancreas. Splenic calcified granulomas. Remaining abdominal sonogram is normal.
[2024-09-08] MEDS: Acidophilus TABLET PO SCH (16:29)
[2024-09-08] MEDS: IMODIUM 2 MG PO ONE (16:30)
[2024-09-08] MEDS: Protonix 20MG Tablet PO SCH (16:30)
[2024-09-08 16:33] LABS: ALBUMIN 4.2 g/dL (3.5-5.0); ANION GAP 11.8 MEQ/L (5-15); BILIRUBIN,TOTAL 0.9 mg/dL (0.2-1.3); Calcium 8.7 mg/dL (8.4-10.2); Creatinine 1 0.68 mg/dL (0.66-1.25); EST GLOMERULAR FILTRATION RATE 130.7 ML/MIN; Total Protein 7.1 g/dL (6.3-8.2)
[2024-09-08] MEDS ORDERED: NON-FORMULARY ITEM (Venlafaxine Hcl [Venlafaxine Hcl Er] 150 MG Tab.Er.24) PO SCH (22:00)
[2024-09-08] MEDS ORDERED: ZIPRASIDONE HCL 80 MG PO SCH (22:00)
[2024-09-08] MEDS: Effexor XR 75 MG PO SCH (23:03)
[2024-09-08] MEDS: Geodon 20 MG Capsule PO SCH (23:03)
[2024-09-09 04:51] LABS: BASOPHIL % 0.3 % (0.2-1.2); Basophil (Absolute #) 0.02 x10^3/uL (0.01-0.08); Eosinophil % 0.3 % (0.8-7.0); Eosinophil (Absolute #) 0.02 x10^3/uL (0.04-0.54); Hematocrit 43.2 % (40.1-51.0); IMMATURE GRAN # 0.01 x10^3u/L (0.001-0.031); IMMATURE GRAN % 0.2 % (0.001-0.429); Lymphocyte (Absolute #) 0.77 x10^3/uL (1.32-3.57); Lymphocytes % 12.4 % (21.8-53.1); Mean Cell Volume 87.3 fL (79.0-92.2); Mean Corpuscular Hemoglobin 30.3 pg (25.7-32.2); Mean Corpuscular Hgb Concent. 34.7 g/dL (32.3-36.5); Mean Platelet Volume 10.3 fL (9.4-12.4); Monocyte (Absolute #) 0.61 x10^3/uL (0.30-0.82); Monocytes % 9.8 % (5.3-12.2); Platelet Count 174 x10^3/uL (163-337); Red Blood Count 4.95 x10^6/uL (4.63-6.08); Red Cell Distribution Width 11.7 % (11.6-14.4); White Blood Count 6.2 x10^3/uL (4.23-9.07)
[2024-09-09 05:22] LABS: ALBUMIN 4.3 g/dL (3.5-5.0); ANION GAP 11.3 MEQ/L (5-15); BILIRUBIN,TOTAL 0.7 mg/dL (0.2-1.3); Calcium 8.9 mg/dL (8.4-10.2); Creatinine 1 0.74 mg/dL (0.66-1.25); EST GLOMERULAR FILTRATION RATE 127.4 ML/MIN; Potassium 4.1 mmol/L (3.5-5.1); Total Protein 7.3 g/dL (6.3-8.2)
[2024-09-09 07:46] VITALS: RESP 16
[2024-09-09] MEDS: Cardizem 30 MG PO SCH (10:03)
--- NOTE | 2024-09-09 11:01 | PCM.CONS ---
History of Present Illness - Date of Consult Date of Encounter: 09/09/24 Consulting Clinical Law Professor: DOUGLAS PETERSON MD Requesting Provider: Attending Provider: ELVIA BREAUX MD Primary Care Provider: PCP: ZO VILLEGAS Consent was: Given for this tele-med encounter - Consult Narrative Reason for Consult: Paroxysmal atrial fibrillation HPI: Patient is a 29M who denies fevers, chills, nausea, vomiting, diarrhea, syncope, presyncope, dysphagia,odynophagia, orthopnea, paroxysmal nocturnal dyspnea, shortness of breath, chest pain, refluxsymptoms, belly pain, dysuria, hematuria, melena, hematochezia, seizures, paralysis, or other neurological changes. All other systems have been reviewed and are negative. cc:: The requesting physician will be sent a copy of the consult. - Past Medical History Past Medical History: Yes Neurological History: No Pertinent History ENT History: No Pertinent History Cardiac History: No Pertinent History Respiratory History: No Pertinent History Endocrine Medical History: No Pertinent History Musculoskelatal History: No Pertinent History GI Medical History: Crohns Disease History: No Pertinent History Pyscho-Social History: Bipolar, Depression Male Reproductive Disorders: No Pertinent History Comment: A-fib with RVR March 2024 - sees Dr. Szymanski - Past Surgical History Past Surgical History: Yes Neuro Surgical History: No Pertinent History Cardiac History: No Pertinent History Respiratory Surgery: No Pertinent History GI Surgical History: No Pertinent History Genitourinary Surgical Hx: No Pertinent History Musculskeletal Surgical Hx: Other Male Surgical History: No Pertinent History Other Surgical History: bilateral fourth and fifth finger separation - Social History Smoking Status: Never smoker Exposure to second hand smoke: No Alcohol: None Drug Use: none, marijuana - Social Determinants of Health Will the patient participate in the screening: Yes Do you worry about a steady place to live?: No Do you have any problems with any of the following?: No known problems In the past 12 months,have you had to go without utilities?: No Have you or anyone in your house had to go without enough: No Transportation Issues: No Has anyone in your support network made you feel unsafe?: No Does the patient want assistance with any of the above?: No Medications & Allergies Home Medications: Home Medication List dilTIAZem HCL [Diltiazem 12Hr ER] 1 cap PO BID 09/08/24 [History Confirmed 09/08/24] Venlafaxine HCl ER 75 mg [Effexor XR 75 MG] 75 mg PO QHS 09/09/24 [History Confirmed 09/09/24] Ziprasidone 20 mg [Geodon 20 MG Capsule] 40 mg PO QHS 09/09/24 [History Confirmed 09/09/24] Allergies/Adverse Reactions: Allergies Allergy/AdvReac Type Severity Reaction Status Date / Time No Known Drug Allergies Allergy Verified 09/08/24 06:56 Exam - Vitals Vital Signs: Vital Signs - 24 hr Temp Pulse Resp BP BP Pulse Ox 09/09/24 07:45 98.2 F 95 H 16 91/50 99 09/09/24 07:00 100 09/09/24 04:00 97.8 F 94 H 18 112/63 97 09/08/24 23:47 97.8 F 85 17 109/62 97 09/08/24 20:14 99.6 F 09/08/24 20:00 93 H 09/08/24 19:30 88 16 100/62 97 09/08/24 19:15 87 17 99/68 100 09/08/24 19:00 83 23 101/69 97 09/08/24 18:45 93 H 18 102/68 94 L 09/08/24 18:30 88 19 98/68 96 09/08/24 18:15 87 19 101/68 98 09/08/24 18:01 103 H 22 112/68 98 09/08/24 17:45 95 H 21 116/74 97 09/08/24 17:30 89 22 121/82 96 09/08/24 17:15 103 H 24 114/71 96 09/08/24 17:00 90 17 103/63 96 09/08/24 16:45 88 16 107/66 97 09/08/24 16:30 90 18 108/69 09/08/24 16:15 90 22 111/65 97 09/08/24 16:00 96 H 20 107/68 95 09/08/24 15:45 94 H 17 104/66 95 09/08/24 15:30 97 H 21 105/60 95 09/08/24 15:15 88 101/61 95 09/08/24 15:00 89 13 107/65 98 09/08/24 14:45 98 H 16 107/66 97 09/08/24 14:38 93 H 22 103/65 96 09/08/24 14:15 97 H 15 105/66 95 09/08/24 14:00 89 18 106/63 95 09/08/24 13:45 88 19 103/64 96 09/08/24 13:30 85 23 102/62 93 L 09/08/24 13:15 93 H 15 97/67 96 09/08/24 13:00 87 24 101/64 95 09/08/24 12:45 82 18 100/66 97 09/08/24 12:30 82 16 103/67 95 09/08/24 12:15 84 19 111/75 95 09/08/24 12:00 97.9 F 98 H 12 113/75 09/08/24 11:45 85 18 110/72 09/08/24 11:30 90 21 111/66 09/08/24 11:24 83 20 108/72 09/08/24 11:15 84 21 108/72 09/08/24 11:00 90 21 119/71 SpO2: 99 Results Vital Signs: Vital Signs - 24 hr Temp Pulse Resp BP BP Pulse Ox 09/09/24 07:45 98.2 F 95 H 16 91/50 99 09/09/24 07:00 100 09/09/24 04:00 97.8 F 94 H 18 112/63 97 09/08/24 23:47 97.8 F 85 17 109/62 97 09/08/24 20:14 99.6 F 09/08/24 20:00 93 H 09/08/24 19:30 88 16 100/62 97 09/08/24 19:15 87 17 99/68 100 09/08/24 19:00 83 23 101/69 97 09/08/24 18:45 93 H 18 102/68 94 L 09/08/24 18:30 88 19 98/68 96 09/08/24 18:15 87 19 101/68 98 09/08/24 18:01 103 H 22 112/68 98 09/08/24 17:45 95 H 21 116/74 97 09/08/24 17:30 89 22 121/82 96 09/08/24 17:15 103 H 24 114/71 96 09/08/24 17:00 90 17 103/63 96 09/08/24 16:45 88 16 107/66 97 09/08/24 16:30 90 18 108/69 09/08/24 16:15 90 22 111/65 97 09/08/24 16:00 96 H 20 107/68 95 09/08/24 15:45 94 H 17 104/66 95 09/08/24 15:30 97 H 21 105/60 95 09/08/24 15:15 88 101/61 95 09/08/24 15:00 89 13 107/65 98 09/08/24 14:45 98 H 16 107/66 97 09/08/24 14:38 93 H 22 103/65 96 09/08/24 14:15 97 H 15 105/66 95 09/08/24 14:00 89 18 106/63 95 09/08/24 13:45 88 19 103/64 96 09/08/24 13:30 85 23 102/62 93 L 09/08/24 13:15 93 H 15 97/67 96 09/08/24 13:00 87 24 101/64 95 09/08/24 12:45 82 18 100/66 97 09/08/24 12:30 82 16 103/67 95 09/08/24 12:15 84 19 111/75 95 09/08/24 12:00 97.9 F 98 H 12 113/75 09/08/24 11:45 85 18 110/72 09/08/24 11:30 90 21 111/66 09/08/24 11:24 83 20 108/72 09/08/24 11:15 84 21 108/72 09/08/24 11:00 90 21 119/71 Pain Assessment - Last Documented Pain Intensity 0 Intake and Output: Intake & Output 09/06/24 09/07/24 09/08/24 09/09/24 11:59 11:59 11:59 11:59 Intake Total 60 2185 Output Total 500 Balance 60 1685 Weight 62 kg LAB: I have reviewed the Labs in [facility]. Radiology Exams: Radiology Procedures Category Date Time Status ABDOMEN AND PELVIS W/0 CONTRAS [CT] Stat Exams 09/08/24 03:35 Completed ECHO W/2D AND DOPPLER [US] Routine Exams 09/08/24 07:46 Taken UPPER ABDOMEN [US] Routine Exams 09/08/24 08:04 Completed Transthoracic Echocardiogram 09/08/2024: 1. Normal biventricular wall thickness, chamber size, and systolic function. 2. Estimated left ventricular ejection fraction is 55%. 3. Structurally normal valves without significant valvular regurgitation. 4. Normal PA systolic pressure. 5. Normal right atrial pressure. 6. No pericardial effusion. Abdomonal Ultrasound 09/08/2024: Nonvisualization pancreas. Splenic calcified granulomas. Remaining abdominal sonogram is normal. CT of Abdomen and Pelvis without contrast 09/08/2024: 1. No acute abdominal abnormality detected. Contrast study suggested for better evaluation if clinically indicated. 2. Multiple calcified granulomas in the spleen. 3. Few calcified granulomas in the liver. 4. Mild subcutaneous fat stranding and few air foci are noted in the subcutaneous plane of anterior abdominal wall on the right side at the level of umbilicus. Clinical correlation for underlying trauma is suggested. 5. Mild anterior wedging of T10 and T11 vertebra is noted. Schmorl's node are noted involving all the visualized thoracic and most of the lumbar vertebrae. Possibility of Scheuermann disease. No kyphoscoliosis is noted in the current study. Suggested follow up. Multi-Disciplinary Progress Notes: Multi-Disciplinary Progress Notes 09/09/24 10:54 Radiology Note by DOUGLAS PETERSON TRANSTHORACIC ECHOCARDIOGRAM 09/08/2024: 1. Normal biventricular wall thickness, chamber size, and systolic function. 2. Estimated left ventricular ejection fraction is 55%. 3. Structurally normal valves without significant valvular regurgitation. 4. Normal PA systolic pressure. 5. Normal right atrial pressure. 6. No pericardial effusion. 7. Impression: Normal echocardiogram. Douglas Peterson MD [facility] Initialized on 09/09/24 10:54 - END OF NOTE Assessment & Plan (1) Paroxysmal atrial fibrillation Current Visit: Yes Status: Acute Assessment & Plan: Asymptomatic. Two documented episodes occurring in setting of nausea and vomiting when his catecholamines were probably elevated which could have precipitated bouts. Both episodes spontaneously converted to sinus rhythm within 3-4 hours of diagnosis. No alcohol or high caffeinated dirinks were taken. No family history of atrial fibrillation. Unclear if he has a genetic predisposition but genetic testing should be done only if he desires it as this will not impact his treatment. Recommend replacing diltiazem with metoprolol succinate 50 mg daily. Admonished patient not to abruptly stop without talking to his rock crusher. [id number] score = 0; thus, no indication for systemic anticoagulation. Aspirin has not been shown to be of any benefit. If affordable, he should purchase a later generation of Apple watch with ECG capabiity. With the Apple watch, he can keep a diary of the frequency and duration of his atrial fibrillation to share with his rock crusher. Code(s): I48.0 - PAROXYSMAL ATRIAL FIBRILLATION (2) Nausea vomiting and diarrhea Current Visit: Yes Status: Acute Assessment & Plan: Suspect part of a viral syndrome which helped to precipitate his atrial fibrillation bout. Code(s): R11.2 - NAUSEA WITH VOMITING, UNSPECIFIED; R19.7 - DIARRHEA, UNSPECIFI ED - Encounter Encounter: "The entirety of this encounter was performed via Telemedicine using audio and visual "
--- NOTE | 2024-09-09 12:23 | PCM.DS ---
Discharge Summary Date of Admission: 09/08/24 06:33 Date of Discharge: 09/09/24 Admitting Physician: ELVIA BREAUX MD Consults: Consults on Case 09/08/24 07:39 Consult Cardiology ROUTINE Primary Care Provider: ZO VILLEGAS Allergies Allergies No Known Drug Allergies Allergy (Verified 09/08/24 06:56) Hospital Summary - Hospital Course Hospital Course: 09/08/24 is a 29 year old male with PMHX of Autism, crohn's, bipolar, and depression. Pt arrived to ER for sudden onset of abdominal pain, vomiting and diarrhea prior to arrival to the emergency department. Patient states he had multiple episodes of vomiting and retching. He had episodes of diarrhea prior to going to bed. Patient denies chest pain. He denies shortness of breath. He has no known exposures to individuals similar symptoms or who have been diagnosed with the flu. Patient does have a history of Crohn's disease. Patient heart rate was noticed to be rapid in the 130s to 160s range. A twelve- lead EKG showed atrial fibrillation with RVR. Approximately 5 months ago, patient was diagnosed with atrial fibrillation, monitored in the hospital setting, wore a Holter monitor for approximately 2 weeks then was seen by his professor of religious studies, Dr. Szymanski, and placed on long-acting diltiazem. He is not on any anticoagulation therapy. He states that he has been taking this medication as prescribed. Since admission HR now controlled on cardizem gtt. He continues to have diarrhea but N/V is controlled. He overall is starting to feel better. He denies CP, SOB, abd. pain, N/V. 09/09/24 Pt resting in bed. He is wanting to d/c today. Spoke with cardiology who recommended to start metoprolol tomorrow and to d/c Cardizem PO. Home dose of cardizem gave this AM. C-Dif negative and pt is no longer having diarrhea. US abd. nonconcerning. Labs overall ok today. HR controlled. Cardiology recommended obtaining and apple watch to know when he is having a-fib episodes and to track them as it would tell him. OK to d/c per cardiology. Pt denies any further concerns at this time. - Vitals & Intake/Output Vital Signs: Vital Signs Temperature 98.2 F 09/09/24 07:45 Pulse Rate 95 H 09/09/24 07:45 Respiratory Rate 16 09/09/24 07:45 Blood Pressure 91/50 09/09/24 07:45 O2 Sat by Pulse Oximetry 99 09/09/24 11:54 Intake & Output: Intake & Output 09/07/24 09/08/24 09/09/24 09/10/24 11:59 11:59 11:59 11:59 Intake Total 60 2185 Output Total 500 Balance 60 1685 Weight 62 kg - Lab Result Diagrams: 09/09/24 04:45 09/09/24 04:45 Lab Results-Last 24 Hrs: Lab Results-Last 24 Hours 09/08/24 09/08/24 09/08/24 Range/Units 11:42 12:14 12:45 WBC (4.23-9.07) x10^3/uL RBC (4.63-6.08) x10^6/uL Hgb (13.7-17.5) g/dL Hct (40.1-51.0) % MCV (79.0-92.2) fL MCH (25.7-32.2) pg MCHC (32.3-36.5) g/dL RDW (11.6-14.4) % Plt Count (163-337) x10^3/uL MPV (9.4-12.4) fL Gran % (34.0-67.9) % Immature Gran % (Auto) (0.001-0.429) % Nucleat RBC Rel Count (0.00-0.2) % Eos # (Auto) (0.04-0.54) x10^3/uL Immature Gran # (Auto) (0.001-0.031) x10^3u/L Absolute Lymphs (auto) (1.32-3.57) x10^3/uL Absolute Monos (auto) (0.30-0.82) x10^3/uL Absolute Nucleated RBC (0.00-0.012) x10^3u/L Lymphocytes % (21.8-53.1) % Monocytes % (5.3-12.2) % Eosinophils % (0.8-7.0) % Basophils % (0.2-1.2) % Absolute Granulocytes (1.78-5.38) x10^3/uL Basophils # (0.01-0.08) x10^3/uL Sodium (135-145) mmol/L Potassium (3.5-5.1) mmol/L Chloride (98-107) mmol/L Carbon Dioxide (22-30) mmol/L Anion Gap (5-15) MEQ/L BUN (9-20) mg/dL Creatinine (0.66-1.25) mg/dL Estimated GFR ML/MIN Glucose (74-106) mg/dL Calcium (8.4-10.2) mg/dL Total Bilirubin (0.2-1.3) mg/dL AST (17-59) U/L ALT (0-50) U/L Alkaline Phosphatase (38-126) U/L Troponin I < 0.012 (0.000-0.033) ng/mL Serum Total Protein (6.3-8.2) g/dL Albumin (3.5-5.0) g/dL Urine Color Yellow (Yellow) Urine Appearance Clear (Clear) Urine pH 7.0 (4.6-8.0) Ur Specific Harold 1.010 (1.005-1.030) Urine Protein Negative (Negative) Urine Glucose (UA) Negative (Negative) mg/dL Urine Ketones 15 A (Negative) Urine Blood Negative (Negative) Urine Nitrite Negative (Negative) Urine Bilirubin Negative (Negative) Urine Urobilinogen 0.2 (0.2) mg/dL Ur Leukocyte Esterase Negative (Negative) U Hyaline Cast (Auto) NONE SEEN (0-2) /LPF Urine Microscopic RBC 0-2 (0-5) /HPF Urine Microscopic WBC 3-5 (0-5) /HPF Ur Epithelial Cells None Seen (None Seen) /HPF Urine Bacteria None Seen (None Seen) /HPF Urine Culture Reflexed NO (NO) C. difficile Screen NEGATIVE (NEGATIVE) C.difficile 027-NAP1-B1 PRESUMPTIVE NEGATIVE (NEGATIVE) 09/08/24 09/09/24 09/09/24 Range/Units 16:08 04:45 04:45 WBC 6.2 (4.23-9.07) x10^3/uL RBC 4.95 (4.63-6.08) x10^6/uL Hgb 15.0 (13.7-17.5) g/dL Hct 43.2 (40.1-51.0) % MCV 87.3 (79.0-92.2) fL MCH 30.3 (25.7-32.2) pg MCHC 34.7 (32.3-36.5) g/dL RDW 11.7 (11.6-14.4) % Plt Count 174 (163-337) x10^3/uL MPV 10.3 (9.4-12.4) fL Gran % 77.0 H (34.0-67.9) % Immature Gran % (Auto) 0.2 (0.001-0.429) % Nucleat RBC Rel Count 0.0 (0.00-0.2) % Eos # (Auto) 0.02 L (0.04-0.54) x10^3/uL Immature Gran # (Auto) 0.01 (0.001-0.031) x10^3u/L Absolute Lymphs (auto) 0.77 L (1.32-3.57) x10^3/uL Absolute Monos (auto) 0.61 (0.30-0.82) x10^3/uL Absolute Nucleated RBC 0.00 (0.00-0.012) x10^3u/L Lymphocytes % 12.4 L (21.8-53.1) % Monocytes % 9.8 (5.3-12.2) % Eosinophils % 0.3 L (0.8-7.0) % Basophils % 0.3 (0.2-1.2) % Absolute Granulocytes 4.80 (1.78-5.38) x10^3/uL Basophils # 0.02 (0.01-0.08) x10^3/uL Sodium 137 135 (135-145) mmol/L Potassium 4.0 4.1 (3.5-5.1) mmol/L Chloride 102 99 (98-107) mmol/L Carbon Dioxide 27 28 (22-30) mmol/L Anion Gap 11.8 11.3 (5-15) MEQ/L BUN 9 8 L (9-20) mg/dL Creatinine 0.68 0.74 (0.66-1.25) mg/dL Estimated GFR 130.7 127.4 ML/MIN Glucose 108 H 102 (74-106) mg/dL Calcium 8.7 8.9 (8.4-10.2) mg/dL Total Bilirubin 0.90 0.70 (0.2-1.3) mg/dL AST 22 23 (17-59) U/L ALT 14 15 (0-50) U/L Alkaline Phosphatase 87 77 (38-126) U/L Troponin I (0.000-0.033) ng/mL Serum Total Protein 7.1 7.3 (6.3-8.2) g/dL Albumin 4.2 4.3 (3.5-5.0) g/dL Urine Color (Yellow) Urine Appearance (Clear) Urine pH (4.6-8.0) Ur Specific Harold (1.005-1.030) Urine Protein (Negative) Urine Glucose (UA) (Negative) mg/dL Urine Ketones (Negative) Urine Blood (Negative) Urine Nitrite (Negative) Urine Bilirubin (Negative) Urine Urobilinogen (0.2) mg/dL Ur Leukocyte Esterase (Negative) U Hyaline Cast (Auto) (0-2) /LPF Urine Microscopic RBC (0-5) /HPF Urine Microscopic WBC (0-5) /HPF Ur Epithelial Cells (None Seen) /HPF Urine Bacteria (None Seen) /HPF Urine Culture Reflexed (NO) C. difficile Screen (NEGATIVE) C.difficile 027-NAP1-B1 (NEGATIVE) - Radiology Exams Ordered Rad Exams-Entire Visit: Radiology Procedures Category Date Time Status ABDOMEN AND PELVIS W/0 CONTRAS [CT] Stat Exams 09/08/24 03:35 Completed ECHO W/2D AND DOPPLER [US] Routine Exams 09/08/24 07:46 Taken UPPER ABDOMEN [US] Routine Exams 09/08/24 08:04 Completed - Procedures and Test Procedures and Tests throughout Hospitalization: Therapy Orders & Screens 09/08/24 06:35 EKG REPEAT IN AM Comment: Discharge Exam General Appearance: no apparent distress, alert Neurologic Exam: alert, oriented x 3, cooperative, normal mood/affect, nml cerebellar function, sensation nml, No motor deficits Eye Exam: PERRL, EOMI, eyes nml inspection Ears, Nose, Throat Exam: normal ENT inspection, pharynx normal, moist mucous membranes Neck Exam: normal inspection, non-tender, supple, full range of motion Respiratory Exam: normal breath sounds, lungs clear, No respiratory distress Cardiovascular Exam: regular rate/rhythm, normal heart sounds Gastrointestinal/Abdomen Exam: soft, No tenderness, No mass Male Genitalia Exam: deferred Rectal Exam: deferred Back Exam: normal inspection, normal range of motion, No CVA tenderness, No vertebral tenderness Extremity Exam: normal inspection, normal range of motion Skin Exam: normal color, warm, dry Final Diagnosis/Problem List - Final Discharge Diagnosis/Problem (1) Atrial fibrillation with RVR Current Visit: Yes Status: Resolved Code(s): I48.91 - UNSPECIFIED ATRIAL FIBRILLATION (2) Nausea vomiting and diarrhea Current Visit: Yes Status: Acute Code(s): R11.2 - NAUSEA WITH VOMITING, UNSPECIFIED; R19.7 - DIARRHEA, UNSPECIFIED (3) Autism Current Visit: No Status: Chronic Code(s): F84.0 - AUTISTIC DISORDER (4) Abnormal finding on CT scan Current Visit: Yes Status: Acute Code(s): R93.89 - ABNORMAL FINDINGS ON DX IMAGING OF OTH BODY STRUCTURES (5) Bipolar 1 disorder Current Visit: No Status: Chronic Code(s): F31.9 - BIPOLAR DISORDER, UNSPECIFIED (6) Depression Current Visit: No Status: Chronic Code(s): F32.A - DEPRESSION, UNSPECIFIED (7) History of Crohn's disease Current Visit: No Status: Chronic Assessment & Plan: (1) Atrial fibrillation with RVR Current Visit: Yes Status: Resolved Assessment & Plan: - cardizem gtt started in ER and continued -Has a hx of a-fib and followed by Dr. Scott - ICU - Tele - EKG- reviewed - Echo - Consult Cardiology - Stop cardizem gtt after 2nd dose of Diltiazem - started Diltiazem 30mg Q6 - TSH- ok - Keep Mg+ > 2 and K+ > 4- replaced - Chads2- Vasc score- 0 1818 - discussed pt case with cardiology- ok to d/c home, stop cardizem PO and start metoprolol tomorrow. - HR controlled Code(s): I48.91 - UNSPECIFIED ATRIAL FIBRILLATION (2) Nausea vomiting and diarrhea Current Visit: Yes Status: Acute Assessment & Plan: - C-diff, stool culture - protonix - Probiotics - Zofran PRN - Temp 99 this AM - Tylenol for fever PRN - CT abd/ pelvis: IMPRESSION: 1. No acute abdominal abnormality detected. Contrast study suggested for better evaluation if clinically indicated. 2. Multiple calcified granulomas in the spleen. 3. Few calcified granulomas in the liver. 4. Mild subcutaneous fat stranding and few air foci are noted in the subcutaneous plane of anterior abdominal wall on the right side at the level of umbilicus. Clinical correlation for underlying trauma is suggested. 5. Mild anterior wedging of T10 and T11 vertebra is noted. Schmorl's node are noted involving all the visualized thoracic and most of the lumbar vertebrae. Possibility of Scheuermann disease. No kyphoscoliosis is noted in the current study. Suggested follow up. 09/09 - resolved - C-diff negative Code(s): R11.2 - NAUSEA WITH VOMITING, UNSPECIFIED; R19.7 - DIARRHEA, UNSPECIFIED (3) Autism Current Visit: No Status: Chronic Assessment & Plan: - adds to complexity Code(s): F84.0 - AUTISTIC DISORDER (4) Abnormal finding on CT scan Current Visit: Yes Status: Acute Assessment & Plan: - fat stranding of abd seen - US for further eval- negative Code(s): R93.89 - ABNORMAL FINDINGS ON DX IMAGING OF OTH BODY STRUCTURES (5) Bipolar 1 disorder Current Visit: No Status: Chronic Assessment & Plan: - continue home meds Code(s): F31.9 - BIPOLAR DISORDER, UNSPECIFIED (6) Depression Current Visit: No Status: Chronic Assessment & Plan: - continue home meds Code(s): F32.A - DEPRESSION, UNSPECIFIED (7) History of Crohn's disease Current Visit: No Status: Chronic Assessment & Plan: - No current exacerbation per CT Code(s): Z87.19 - PERSONAL HISTORY OF OTHER DISEASES OF THE DIGESTIVE SYSTEM - Discharge Discharge Date: 09/09/24 Disposition: Home, Self-Care Condition: Stable Prescriptions: New Metoprolol Succinate 50 mg [Toprol Xl 50 MG] 50 mg PO DAILY 30 Days #30 tablet Continue Ziprasidone 20 mg [Geodon 20 MG Capsule] 40 mg PO QHS Venlafaxine HCl ER 75 mg [Effexor XR 75 MG] 75 mg PO QHS Discontinued dilTIAZem HCL [Diltiazem 12Hr ER] 1 cap PO BID Instructions: Atrial fibrillation Additional Instructions: Cardiology recommended obtaining and apple watch to know when he is having a-fib episodes and to track them as it would tell him. If you are able to obain this then record episodes and follow up with cardiology. If you continue have diarrhea you can take Immodium over the counter. Follow label directions and do not take more than is directed per day.
[2024-09-09 12:32] VITALS: BP 100/63; PULSE 88; TEMP 98; O2SAT 96
[2024-09-09] MEDS: Toprol Xl 50 MG PO SCH (13:09)
== END 2024-09-09 15:16 | disposition home or self-care (01) ==
LOC: ED 02:32 → ICU 06:33 → MED SURG 22:15
PROVIDERS: ADMIT Internal Medicine; ATTEND Internal Medicine
DX: I48.91 Unspecified atrial fibrillation (principal); R11.2 Nausea with vomiting, unspecified; F84.0 Autistic disorder; R93.89 Abnormal findings on diagnostic imaging of other specified body structures; F31.9 Bipolar disorder, unspecified; Z87.19 Personal history of other diseases of the digestive system; Z79.899 Other long term (current) drug therapy
CPT/HCPCS: 0241U; 36415; 74176; 76700; 80053; 81001; 83735; 83880; 84443; 84484; 85025; 85379; 85610; 86308; 87045; 87046; 87427; 87493; 93005; 93041; 93306; 94760; 96374; 96375; 96376; 99285; J1650; J2405; Q3014; A9270-GY